=== PATIENT | male | born 1960 | race Caucasian/White ===

== ENCOUNTER 2023-04-27 07:54 | Outpatient (OUT) | payer BC, SELFPAY ==
[2023-04-27 08:09] LABS: Basophils Percent Auto 0.4 % (0.2-2.0); Eosinophils Absolute Auto 0.3 10^3/uL (0.0-0.7); Eosinophils Percent Auto 5.3 % (0.9-7.0); Hemoglobin 14.4 g/dL (14.0-18.0); Immature Granulocytes Abs Auto 0.02 10^3/uL (0.00-0.03); Immature Granulocytes Pct Auto 0.4 % (0.0-0.5); Lymphocytes Absolute Auto 1.3 10^3/uL (1.2-3.8); Lymphocytes Percent Auto 26.6 % (20.5-60.0); Mean Corpuscular HGB Conc 35.1 g/dL (29.9-35.2); Mean Corpuscular Hemoglobin 30.4 pg (25.9-34.0); Mean Corpuscular Volume 86.5 fL (80.0-94.0); Mean Platelet Volume 9.1 fL (9.5-13.5); Monocytes Absolute Auto 0.5 10^3/uL (0.3-0.8); Monocytes Percent Auto 10.6 % (1.7-12.0); Neutrophils Absolute Auto 2.8 10^3/uL (1.4-6.5); Neutrophils Percent Auto 56.7 % (43.0-75.0); Platelet Count 134 10^3/uL (150-450); Red Blood Count 4.74 10^6/uL (4.70-6.10); Red Cell Distribution Width 12.5 % (11.0-15.0); White Blood Count 4.9 10^3/uL (4.0-11.0)
[2023-04-27 09:13] LABS: Alanine Aminotransferase 39 U/L (16-63); Albumin Globulin Ratio 1.2; Albumin Level 4.1 g/dL (3.4-5.0); Alkaline Phosphatase 85 U/L (46-116); Anion Gap 9.9; Aspartate Amino Transferase 20 U/L (15-37); BUN Creatinine Ratio 15.6; Bilirubin Total 0.6 mg/dL (0.2-1.0); Calcium 9.2 mg/dL (8.5-10.1); Carbon Dioxide 32.1 mmol/L (21.0-32.0); Chloride 102 mmol/L (98-107); Chol HDL Ratio 4.9; Cholesterol 181 mg/dL (<=200); Estimated GFR (African America >60 (>=60); Estimated GFR (Non-African Ame >60 (>=60); Globulin 3.5 g/dL; Glucose 140 mg/dL (74-106); HDL Cholesterol 37 mg/dL (40-60); Sodium 140 mmol/L (136-145); Total Protein 7.6 g/dL (6.4-8.2); Triglycerides 181 mg/dL (<=150); Uric Acid 5.7 mg/dL (3.5-7.2); VLDL CHOLESTEROL 36.2 mg/dL
[2023-04-27 09:54] LABS: Estimated Average Glucose 146 mg/dL; Glycohemoglobin A1C 6.7 % (4.5-6.2)
[2023-04-27 10:50] LABS: Prostate Specific Antigen Scrn 0.45 ng/mL (<=4.00)
== END 2023-04-27 07:55 | disposition home or self-care (01) ==
LOC: LAB 07:54
PROVIDERS: PCP Family Medicine; Visit Provider Family Medicine
DX: Z00.00 Encounter for general adult medical examination without abnormal findings (principal); M1A.0721 Idiopathic chronic gout, left ankle and foot, with tophus (tophi); I10 Essential (primary) hypertension; Z12.5 Encounter for screening for malignant neoplasm of prostate; E11.65 Type 2 diabetes mellitus with hyperglycemia
CPT/HCPCS: 36415; 80053; 80061; 83036; 84550; 85025; G0103

== ENCOUNTER 2024-03-14 12:01 | Outpatient (OUT) | payer MEDICARE, SELFPAY ==
--- NOTE | 2024-03-14 12:09 | XR_ITS ---
The [address] [address] Patient Name: ENIO SILVA MRN: [id number] date: 1960 Sex: M Assigned Patient Location: [facility] Current Patient Location: Accession/Order Number: [id number] Exam Date: 03/14/2024 12:11 Report Date: 03/15/2024 04:41 At the request of: CHRISTOPHER SINGH Procedure: XR lumbar spine 2-3V EXAMINATION: XR lumbar spine 2-3V HISTORY: Right Side Sciatica M54.31 COMPARISON: No relevant comparison available. FINDINGS: BONES: Mild degenerative facet arthropathy of lower lumbar spine. No fracture, spondylolisthesis, bone lesion. DISC SPACES: Small posterior endplate osteophytes at L4-L5 suspected to cause mild narrowing of the foramen. Marked disc space narrowing L5-S1 with narrowing of the neural foramen. PARASPINOUS: Negative. No paraspinous abnormality is seen. OTHER: Negative. XR/XR lumbar spine 2-3V IMPRESSION: 1. Degenerative disc disease and facet arthropathy of lower lumbar spine. Electronically authenticated by: ANN MARIE TSANG Date: 03/15/2024 04:41
== END 2024-03-14 12:02 | disposition home or self-care (01) ==
LOC: LAB 12:04 → RAD 12:07
PROVIDERS: Visit Provider Family Medicine
DX: M54.31 Sciatica, right side (principal); M51.36 Other intervertebral disc degeneration, lumbar region
CPT/HCPCS: 72100

== ENCOUNTER 2024-03-20 12:42 | Outpatient (OUT) | payer MEDICARE, SELFPAY ==
--- NOTE | 2024-03-20 12:56 | XR_ITS ---
The [address] [address] Patient Name: ENIO SILVA MRN: [id number] date: 1960 Sex: M Assigned Patient Location: LAB Current Patient Location: LAB Accession/Order Number: [id number] Exam Date: 03/20/2024 13:00 Report Date: 03/20/2024 13:16 At the request of: CHRISTOPHER SINGH Procedure: XR foreign body eye IAN EXAMINATION: XR foreign body eye IAN HISTORY: Foreign Body Screen COMPARISON: No relevant comparison available. FINDINGS: ORBITS: Negative for a metallic foreign body. OTHER: Dental hardware. XR/XR foreign body eye IAN IMPRESSION: No metallic foreign bodies in the orbits Electronically authenticated by: LUIS ARMANDO BOSTON Date: 03/20/2024 13:16
--- NOTE | 2024-03-20 12:57 | MR_ITS ---
The [address] [address] Patient Name: ENIO SILVA MRN: [id number] date: 1960 Sex: M Assigned Patient Location: LAB Current Patient Location: LAB Accession/Order Number: [id number] Exam Date: 03/20/2024 13:25 Report Date: 03/20/2024 14:34 At the request of: CHRISTOPHER SINGH Procedure: MR lumbar spine wo con EXAMINATION: MR lumbar spine wo con HISTORY: Sciatica Of Right Side M54.31 COMPARISON: No relevant comparison available. TECHNIQUE: A variety of imaging planes and parameters were utilized for visualization of suspected pathology. FINDINGS: For the purposes of numbering, sagittal T2 image # 8 extends from the T11 vertebral body superiorly to the S2-S3 level inferiorly. PARASPINAL AREA: Normal with no visible mass. BONES: Normal alignment with no acute fracture or spondylolisthesis. No significant bone edema. CORD/CAUDA EQUINA: Normal caliber, contour, and signal intensity. DISC LEVELS: 12-L1: No significant disc/facet abnormality, spinal stenosis, or foraminal stenosis. L1-L2: No significant disc/facet abnormality, spinal stenosis, or foraminal stenosis. L2-L3: Disc desiccation. Left foraminal disc protrusion. No central canal or foraminal stenosis L3-L4: No disc space narrowing and disc desiccation. Mild posterior disc/osteophyte complex most significant along the left neural foramen. Mild ligamentum flavum hypertrophy and facet osteoarthropathy. No central canal stenosis or right foraminal stenosis. Mild left foraminal stenosis L4-L5: Disc desiccation and disc space narrowing. Mild diffuse disc/osteophyte complex. Left foraminal disc herniation of the extrusion type best seen on sagittal image #4 causing moderate foraminal stenosis. No right foraminal stenosis L5-S1: Moderate disc space narrowing and disc desiccation. Right paracentral/preforaminal disc herniation of the extrusion type best seen on axial image #12. This effaces the adjacent nerves. No foraminal stenosis MR/MR lumbar spine wo con IMPRESSION: Discogenic changes detailed above with a right paracentral/preforaminal disc herniation at L5-S1 possibly resulting in the patient's symptoms Electronically authenticated by: LUIS ARMANDO BOSTON Date: 03/20/2024 14:34
[2024-03-20 13:00] LABS: Estimated GFR (African America >60 (>=60); Estimated GFR (Non-African Ame >60 (>=60)
== END 2024-03-20 12:43 | disposition home or self-care (01) ==
LOC: LAB 12:42
PROVIDERS: PCP Family Medicine; Visit Provider Family Medicine
DX: M54.31 Sciatica, right side (principal); M51.27 Other intervertebral disc displacement, lumbosacral region
CPT/HCPCS: 36415; 70030; 72148; 82565

== ENCOUNTER 2024-10-01 09:52 | Outpatient (OUT) | payer MEDICARE, SELFPAY ==
--- OUTSIDE RECORDS SUMMARY | 2024-10-01 09:58 | XMS_ITS | CCD ---
Author Organization [facility] Care Team Providers Care Fireboat Operator Name Role Phone REQUEST, DR NONE LISTED Consulting Unavaila ble MISC, DR ELLIS Admitting Unavailable MISC, DR ELLIS Attending Unavailable MANCERA, DR RAQUEL Mir Primary Care Unavailable REQUEST, NONE LISTED Attending Unavaila ble BEAN, DR RAQUEL Mir Primary Care Unavailable REQUEST, NONE LISTED Admitting Unavaila ble REQUEST, NONE LISTED Consulting Unavaila ble [facility]. Attending Unavailable Milady Mansfield Unavailable Misha Jacobs Unavailable MD Misha Jacobs Attending Provider MD Milady Mansfield Primary Care Provider [phone] Maria Luisa Gudino Unavailable MD Milady Mansfield Primary Care Provider MD Wyatt Mansfield Attending Provider Misha Jacobs Admitting UnavailMisha Guallpa Attending UnavailMilady Portillo Primary Care Unavailable Wyatt Mansfield Admitting Unavailable Wyatt Mansfield Attending Unavailable Milady Mansfield Primary Care Unavailable Wyatt Mansfield Admitting Unavailable Wyatt Mansfield Attending Unavailable Milady Mansfield Primary Care Unavailable Allergies Allergy Classification Reported Allergen(s) Allergy Type Date of Onset Reaction(s) Facility (1 source) Sulfamethoxazole / Trimethoprim Drug Allergy 6 [facility] Rep[facility] Medications Current Medications Medication Drug Class(es) Dates Sig (Normalized) Sig (Original) azithromycin 250 mg oral tablet (2 sources) Macrolide Antimicrobial Start: 3 Azithromycin 250 MG 2 tablet on the first day, then 1 tablet daily for 4 days Orally Once a day for 5 day(s) Jul, Active bisoprolol fumarate 5 mg / hydroCHLOROthiazide 6.25 mg oral tablet (9 sources) Thiazide Diuretic, beta-Adrenergic Edy Start: 3 take 1 tablet by mouth once daily Bisoprolol-Hydrochl orothiazide (Ziac) 5-6.25 mg Tablet Active 1 TAB PO Daily August 01, 2023 1:00am cephalexin 500 mg oral capsule (1 source) Cephalosporin Antibacterial Start: 4 take 500 mg by mouth three times daily Cephalexin Active 500 MG PO Three times daily May 06, 2024 12:00am cyclobenzaprine hydrochloride 10 mg oral tablet (1 source) Muscle Relaxant Start: 4 take 10 mg by mouth three times daily Cyclobenzaprine Active 10 MG PO Three times daily 26 06May 06, 2024 10:32am gabapentin 300 mg oral capsule (2 sources) Anti-epileptic Agent Start: 4 take 600 mg by mouth twice daily Gabapentin Active 600 MG PO Twice daily 120 April 17, 2024 12:00am meloxicam 15 mg oral tablet (2 sources) Nonsteroidal Anti-inflammatory Drug Start: 4 take 15 mg by mouth once daily Meloxicam Active 15 MG PO Daily March 25, 2024 12:00am 24 hr metFORMIN hydrochloride 500 mg extended release oral tablet (10 sources) Biguanide Start: 3 End: 4 take 500 mg by mouth once daily Metformin Active 500 MG PO Daily March 04, 2024 10:19am oxyCODONE hydrochloride 5 mg oral tablet (1 source) Opioid Agonist Start: 4 take 5-10 mg by mouth every six hours Oxycodone Active 5 - 10 MG PO Q6H 40 May 06, 2024 Prednisone (1 source) Start: 4 Prednisone Active 1 dose pk PO per package directions May 06, 2024 12:00am take 4 tabs for 3 days then take 3 tabs for 3 days then take 2 tabs for 3 days then take 1 tab for 3 days Completed/Discontinued Medications Medication Drug Class(es) Dates Sig (Normalized) Sig (Original) allopurinol 100 mg oral tablet (8 sources) Xanthine Oxidase Inhibitor Start: 10-19-2023 End: 10-26-2023 take 1 tablet by mouth once daily Allopurinol Discontinued 100 MG PO Daily October 19, 2023 1:00am October 26, 2023 9:40am FreeTextSig: TAKE 1 TABLET BY MOUTH EVERY DAY; Note: Source Status: Taking; Refills: 0; Qty: 90 Tablet; Provider: Donal Henning ( ) take 1 tablet by mouth once damion y Allopurinol 100 MG TAKE 1 TABLET BY MOUTH EVERY DAY for 90 Active aspirin 81 mg delayed release oral tablet (8 sources) Platelet Aggregation Inhibitor, Nonsteroidal Anti-inflammatory Drug Start: 10-19-2023 End: 10-26-2023 Aspirin (Adult Low Dose Aspirin) 81 mg tablet,delayed release (DR/EC) Discontinued 81 MG PO Daily October 19, 2023 1:00am October 26, 2023 9:40am take 1 tablet by mars th every twenty-four hours Aspirin 81 81 MG 1 tablet once a day Active Aspirin 81 81 MG 1 tablet once a day Active Problems Active Problems Problem Classification Problem Date Documented Date Episodic/Chronic Diabetes mellitus with complications (10 sources) Type 2 diabetes mellitus; Translations: [Type 2 diabetes mellitus with hyperglycemia] Chronic Essential hypertension (9 sources) Essential hypertension; Translations: [Essential (primary) hypertension] Chronic Gout and other crystal arthropathies (7 sources) Chronic tophaceous gout of left foot; Translations: [Idiopathic chronic gout, left ankle and foot, with tophus (tophi)] Chronic Other and unspecified benign neoplasm (3 sources) History of polyp of colon; Translations: [Personal history of colonic polyps] 08-01-2023 Episodic Other screening for suspected conditions (not mental disorders or infectious disease) (1 source) Encounter for screening for malignant neoplasm of prostate Episodic Other upper respiratory infections (1 source) Acute pansinusitis, unspecified Episodic Spondylosis; intervertebral disc disorders; other back problems (7 sources) Disorder of lumbosacral intervertebral disc; Translations: [Other intervertebral disc displacement, lumbosacral region] Onset: 05-06-2024 04-16-2024 Chronic Spondylosis; intervertebral disc disorders; other back problems (9 sources) Disorder of right sciatic nerve; Translations: [Sciatica, right side] Onset: 05-06-2024 10-26-2023 Episodic Unclassified (1 source) Encounter for screening for malignant neoplasm of colon; Translations: [Encounter for screening for malignant neoplasm of colon] Onset: 08-01-2023 Past or Other Problems Problem Classification Problem Date Documented Da te Episodic/Chronic Other and unspecified benign neoplasm (2 sources) Personal history of colonic polyps; Translations: [Personal history of colonic polyps] Onset: 08-01-2023 08-01-2023 Episodic Results Test Name Value Interpretation Reference Range Facility Capillary blood glucose joaquín urement by glucometer (mass/volume)Ordered By: Wyatt Mansfield on 05-06-2024 Glucose [Mass/Vol] 137 mg/dL Normal [facility] Comment on above: Random Glucose Refer ence Range is dependent on time and content of last meal. Glucose of more than 200 mg/dL in a nonstressed, ambulatory subject supports the diagnosis of Diabetes Mellitus. Result Comment: [place] om Glucose Reference Range is dependent on time and content of last meal. Glucose of more than 200 mg/dL in a nonstressed, ambulatory subject supports the diagnosis of Diabetes Mellitus. Performed By: #### G LULS #### Point of Care testing , Glucose Poct Glucometerson 0 05-06-2024 Commemt1 Glu2: Cleaned Meter Normal [facility] Comment on above: Result Comment: PERF ORMED BY: [address] [address] PATHOLOGIST FOLLOW UP MANAGER STUART RODRIGUEZ M.D. Performed By: #### G LULS #### Point of Care testing , Commemt1 Glu2: Cleaned Meter Normal [facility] Comment on above: Result Comment: PERF ORMED BY: [facility] [address] [place] [id number] PATHOLOGIST FOLLOW UP MANAGER STUART RODRIGUEZ M.D. Performed By: #### G LULS #### Point of Care testing , Glucose [Mass/Vol] 147 mg/dL Normal [facility] Comment on above: Result Comment: [place] om Glucose Reference Range is dependent on time and content of last meal. Glucose of more than 200 mg/dL in a nonstressed, ambulatory subject supports the diagnosis of Diabetes Mellitus. Performed By: #### G LULS #### Point of Care testing , No Panel InformationOrdered By: Wyatt Mansfield on 05-06-2024 Bedside Glucose Comment Glu2: cleaned meter [facility] XR lumbar spine 1Von 024 XR lumbar spine 1V [facility] [place] [address] [place] [address] XRay Report Signed Patient: Fernando Vick MR#: [id number] : 1960 Acct:[id number] Age/Sex: 64 / M ADM Date: 05/06/24 Loc: [place] Room: Type: [facility] Attending Dr: Wyatt Mansfield MD Copies to: Wyatt Mansfield MD Ordering Provider: Wyatt Mansfield MD Date of Service: 05/06/24 XR/XR lumbar spine 1V: / Fluoroscopic assessment for localization for L5-S1 lumbar discectomy HISTORY: L5-S1 lumbar discectomy One image was obtained. Cumulative Air Kerma in mGy: 1.3 mGy Lateral lumbar localization performed XR/XR lumbar spine 1V IMPRESSION: Fluoroscopic lateral lumbar localization. Impression dictated by: Camacho Em M.D.05/06/2024 4:22 PM Dictation Location: [place] [address] Transcribed By: [facility] 05/06/24 162 Dictated By: Camacho Em DO 05/06/24 162 Signed By: 05/06/24 162 Normal [facility] Automated basophil %Ordered By: Wyatt Mansfield on 04-22-2024 Basophils/100 WBC (Bld) 0.4 % Normal . [facility] Comment on above: Performed By: #### C BC #### [facility] [address] [place] [address] Automated basophil countOrde red By: Wyatt Mansfield on 04-22-2024 Basophils (Bld) [#/Vol] 0.0 10*3/uL Normal 0.0-0.2 [facility] Comment on above: Result Comment: PERF ORMED BY: [place] [address] PATHOLOGIST FOLLOW UP MANAGER STUART RODRIGUEZ M.D. Performed By: #### C BC #### [address] Automated blood monocyte cou ntOrdered By: Wyatt Mansfield on 04-22-2024 Monocytes (Bld) [#/Vol] 0.5 10*3/uL Normal 0.0-0.8 [facility] Comment on above: Performed By: #### C BC #### [address] Automated eosinophil %Ordere d By: Wyatt Mansfield on 04-22-2024 Eosinophils/100 WBC (Bld) 3.6 % Normal . [facility] Comment on above: Performed By: #### C BC #### [address] Automated eosinophil countOr dered By: Wyatt Mansfield on 04-22-2024 Eosinophils (Bld) [#/Vol] 0.2 10*3/uL Normal 0.0-0.45 [facility] Comment on above: Performed By: #### C BC #### [address] Automated monocyte %Ordered By: Wyatt Mansfield on 04-22-2024 Monocytes/100 WBC (Bld) 9.5 % Normal . [facility] Comment on above: Performed By: #### C BC #### [address] Automated neutrophil %Ordere d By: Wyatt Mansfield on 04-22-2024 Neutrophils/100 WBC (Bld) 60.3 % Normal . [facility] Comment on above: Performed By: #### C BC #### [address] Basic Metabolic Panelon 03-29 GFR/1.73 sq M.predicted MDRD (S/P/Bld) [Vol rate/Area] mL/min/{1.73_m2} Normal [facility] Comment on above: Performed By: #### B MP #### [address] Calcium [Mass/volume] in Ser um or PlasmaOrdered By: Wyatt Mansfield on 04-22-2024 Calcium [Mass/Vol] 9.6 mg/dL Normal 8.6-10.3 [facility] Comment on above: Result Comment: PERF ORMED BY: [place] [address] PATHOLOGIST FOLLOW UP MANAGER STUART RODRIGUEZ M.D. Performed By: #### B MP #### [address] Carbon dioxide, total [Moles /volume] in Serum or PlasmaOrdered By: Wyatt Mansfield on 04-22-2024 CO2 [Moles/Vol] 29.0 mmol/L Normal 21.0-31.0 [facility] Comment on above: Performed By: #### B MP #### [address] Chloride [Moles/volume] in S vinny or PlasmaOrdered By: Wyatt Mansfield on 04-22-2024 Chloride [Moles/Vol] 103 mmol/L Normal 98-107 [facility] Comment on above: Performed By: #### B MP #### [address] Complete Blood Count Auto Di ffon 04-22-2024 Mean Corpuscular HGB Conc 35.1 g/dL Normal 32.5-35.6 [facility] Comment on above: Performed By: #### C BC #### [address] NRBC% 0.2 /100{WBC} Normal 0-0.[address] [facility] Comment on above: Performed By: #### C BC #### [address] Creatinine [Mass/volume] in Serum or PlasmaOrdered By: Wyatt Mansfield on 04-22-2024 Creatinine [Mass/Vol] 0.99 mg/dL Normal 0.70-1.30 [facility] Comment on above: Performed By: #### B MP #### [address] ECG 12 lead ECGon 08-26-2024 ECG 12 lead ECG [facility] [place] [address] [place] [address] Electrocardiograph Report Signed Patient: Fernando Vick MR#: [id number] : 1960 Acct:[id number] Age/Sex: 64 / M ADM Date: 04/22/24 Loc: [place] Room: Type: [facility] Attending Dr: Wyatt Mansfield MD Ordering Provider: Wyatt Mansfield MD Date of Service: 04/22/24 ECG/ECG 12 lead ECG: pre-op Copies to: Test Reason : Blood Pressure : */* mmHG Vent. Rate : 56 BPM Atrial Rate : 56 BPM P-R Int : 136 ms QRS Dur : 78 ms QT Int : 422 ms P-R-T Axes : 49 50 21 degrees QTcB Int : 407 ms Sinus bradycardia Otherwise normal ECG No previous ECGs available Confirmed by Issa Ozuna ([id number]) on 04/23/2024 10:30:06 PM Referred By: Electronically Signed By: Issa Ozuna Transcribed By: MUS Signed By Issa Ozuna MD 04/23/242229 Normal [facility] Erythrocyte distribution wid th [Ratio] by Automated countOrdered By: Wyatt Mansfield on 04-22-2024 Erythrocyte distribution width (RBC) [Ratio] 13.1 % Normal 12.0-14.8 [facility] Comment on above: Performed By: #### C BC #### [facility] [address] [place] [address] [place] Erythrocytes [#/volume] in B lood by Automated countOrdered By: Wyatt Mansfield on 04-22-2024 RBC (Bld) [#/Vol] 4.72 10*6/uL Normal 3.90-5.60 [facility] Comment on above: Performed By: #### C BC #### [facility] [address] [place] [address] [place] Glucose [Mass/volume] in Ser um or PlasmaOrdered By: Wyatt Mansfield on 04-22-2024 Glucose [Mass/Vol] 185 mg/dL High 70-100 [facility] Comment on above: ADA recommended refe rence rangeRandom Glucose Reference Range is dependent on time and content of last meal. Glucose of more than 200 mg/dL in a nonstressed, ambulatory subject supports the diagnosis of Diabetes Mellitus. Result Comment: [place] Glucose Reference Range is dependent on time and content of last meal. Glucose of more than 200 mg/dL in a nonstressed, ambulatory subject supports the diagnosis of Diabetes Mellitus. ADA recommended reference range Performed By: #### B MP #### [address] Hematocrit [Volume Fraction] of Blood by Automated countOrdered By: Wyatt Mansfield on 04-22-2024 Hematocrit (Bld) [Volume fraction] 40.4 % Normal 38.8-50.0 [facility] Comment on above: Performed By: #### C BC #### [address] Hemoglobin [Mass/volume] in BloodOrdered By: Wyatt Mansfield on 04-22-2024 Hemoglobin (Bld) [Mass/Vol] 14.2 g/dL Normal 13.0-17.0 [facility] Comment on above: Performed By: #### C BC #### [address] Leukocytes [#/volume] correc bobby for nucleated erythrocytes in Blood by Automated counOrdered By: Wyatt Mansfield on 04-22-2024 WBC corrected for nucl RBC Auto (Bld) [#/Vol] 5.5 10*3/uL 4.1-10.5 [facility] Leukocytes [#/volume] in Blo od by Automated countOrdered By: Wyatt Mansfield on 04-22-2024 WBC (Bld) [#/Vol] 5.5 10*3/uL Normal 4.1-10.5 [facility] Comment on above: Performed By: #### C BC #### [place] [address] [place] Lymphocytes [#/volume] in Bl ood by Automated countOrdered By: Wyatt Mansfield on 04-22-2024 Lymphocytes (Bld) [#/Vol] 1.4 10*3/uL Normal 1.00-4.8 [facility] Comment on above: Performed By: #### C BC #### [address] Lymphocytes/100 leukocytes i n Blood by Automated countOrdered By: Wyatt Mansfield on 04-22-2024 Lymphocytes/100 WBC (Bld) 26.2 % Normal . [facility] Comment on above: Performed By: #### C BC #### [address] MCH [Entitic mass] by Automa bobby countOrdered By: Wyatt Mansfield on 04-22-2024 MCH (RBC) [Entitic mass] 30.0 pg Normal 27.5-35.2 [facility] Comment on above: Performed By: #### C BC #### [address] MCHC Auto (RBC) [Mass/Vol]Or dered By: Wytat Mansfield on 04-22-2024 MCHC (RBC) [Mass/Vol] 35.1 g/dL 32.5-35.6 [facility] MCV [Entitic volume] by Auto mated countOrdered By: Wyatt Mansfield on 04-22-2024 MCV (RBC) [Entitic vol] 85.5 fL Normal 83.5-101 [facility] Comment on above: Performed By: #### C BC #### [address] Neutrophils [#/volume] in Bl ood by Automated countOrdered By: Wyatt Mansfield on 04-22-2024 Neutrophils (Bld) [#/Vol] 3.3 10*3/uL Normal 1.8-7.7 [facility] Comment on above: Performed By: #### C BC #### [address] No Panel InformationOrdered By: Wyatt Mansfield on 04-22-2024 Estimated GFR (CKD-EPI) > 60.0 mL/Min [facility] Creatinine Clearance (Chem N/A [facility] Nucleated erythrocytes [Pres ence] in Blood by Automated countOrdered By: Wyatt Mansfield on 04-22-2024 Nucleated RBC Auto Ql (Bld) 0.2 /100{WBC} 0-0.5 [facility] Platelet mean volume [Entiti c volume] in Blood by Automated countOrdered By: Wyatt Mansfield on 04-22-2024 Platelet mean volume (Bld) [Entitic vol] 7.7 fL Normal 6.6-10.1 [facility] Comment on above: Performed By: #### C BC #### [place] [address] [place] Platelets [#/volume] in Bloo d by Automated countOrdered By: Wyatt Mansfield on 04-22-2024 Platelets (Bld) [#/Vol] 159 10*3/uL Normal 150-450 [facility] Comment on above: Performed By: #### C BC #### [address] Potassium [Moles/volume] in Serum or PlasmaOrdered By: Wyatt Mansfield on 04-22-2024 Potassium [Moles/Vol] 4.0 mmol/L Normal 3.5-5.1 [facility] Comment on above: Performed By: #### B MP #### [address] Serum or plasma anion gap de terminationOrdered By: Wyatt Mansfield on 04-22-2024 Anion gap [Moles/Vol] 11.0 mmol/L Normal 6.0-15.0 [facility] Comment on above: Performed By: #### B MP #### [place] [address] [place] Sodium [Moles/volume] in Ser um or PlasmaOrdered By: Wyatt Mansfield on 04-22-2024 Sodium [Moles/Vol] 139 mmol/L Normal 136-145 [facility] Comment on above: Performed By: #### B MP #### [place] [address] [place] Urea nitrogen [Mass/volume] in Serum or PlasmaOrdered By: Wyatt Mansfield on 04-22-2024 Urea nitrogen [Mass/Vol] 22 mg/dL Normal 7-25 [facility] Comment on above: Performed By: #### B MP #### [facility] [address] [place] [id number] [facility] Estimated glomerular filtrat ion rate (GFR) non- Americanon 03-20-2024 GFR/1.73 sq M.predicted among non-blacks MDRD (S/P/Bld) [Vol rate/Area] mL/min/{1.73_m2} >=60 [facility] - Chemistry and C hemistry - challengeon 03-20-2024 Creatinine [Mass/Vol] 0.92 mg/dL 0.70-1.30 [facility] GFR/1.73 sq M.predicted MDRD (S/P/Bld) [Vol rate/Area] mL/min/{1.73_m2} >=60 [facility] Capillary blood glucose joaquín urement by glucometer (mass/volume)Ordered By: Misha Jacobs on 08-01-2023 Glucose [Mass/Vol] 141 mg/dL Normal [facility] Comment on above: Random Glucose Refer ence Range is dependent on time and content of last meal. Glucose of more than 200 mg/dL in a nonstressed, ambulatory subject supports the diagnosis of Diabetes Mellitus. Result Comment: [place] Glucose Reference Range is dependent on time and content of last meal. Glucose of more than 200 mg/dL in a nonstressed, ambulatory subject supports the diagnosis of Diabetes Mellitus. Performed By: #### G MANDEEP #### Point of Care testing , Glucose Poct Glucometerson 1 10-02-2022 Commemt1 Glu2: Cleaned Meter Normal [facility] Comment on above: Result Comment: PERF ORMED BY: [facility] [address] [place] [address] PATHOLOGIST FOLLOW UP MANAGER STUART RODRIGUEZ M.D. Performed By: #### G MANDEEP #### Point of Care testing , Frank 08-01-2023 L -- Specimen: [id number] Received: 08/01/23 Status: ELDER Jaun Num: [id number] Spec Type: Surgical Subm Dr: Misha Jacobs MD Tissues: A Colon Biopsy (RECTAL POLYP) Procedures: HE/2, Gross/Micro L4 -- Age/ Patient Sex Location Account Attending Physician -- Fernando Vick/M [id number] Misha Jacobs MD -- SPEC NUM: [id number] RECD: 08/01/23 STATUS: ELDER JAUN NUM: [id number] ALBERTO: 08/01/23- DR: Misha Jacobs MD ENTERED: 08/01/23 EZRA QUEEN: SPEC TYPE: Surgical DEPT: S ORDERED: HE/2, Gross/Micro L4 ORDERED: HE/2, Gross/Micro L4 Pathological Diagnosis Rectal polyp biopsy: -Tubular adenoma in all fragments without high-grade features Clinical Information History of polyps Gross Description Received in formalin labeled with the patient's name, date of and rectal polyp are three delatorre tissues ranging from 0.2 cm to 0.5 x 0.3 x 0.2 cm. Entirely submitted in one cassette labeled A1. Microscopic Description Two H E slides reviewed. The microscopic examination confirms the diagnosis. CPT Codes 81894 -- -- Specimen: [id number] Received: 08/01/23 Status: ELDER Jaun Num: [id number] Spec Type: Surgical Subm Dr: Misha Jacobs MD Tissues: A Colon Biopsy (RECTAL POLYP) Procedures: ARNULFO Gross/Micro L4 -- Patient: Brennan Vickg [id number] (Continued) -- Signed (signatu re on file) Bethel Hernandez MD 08/02/232028 Normal [facility] No Panel InformationOrdered By: Misha Jacobs on 08-01-2023 Bedside Glucose Comment Glu2: cleaned meter [facility] GLYCOHEMOGLOBIN A1Con 2022 ADA RECOMMENDATION SEE BELOW Normal [facility] Comment on above: Result Comment: ADA RECOMMENDED LIMIT 4.0 - 6.0 ADA THERAPEUTIC TARGET < 7.0 ACTION SUGGESTED > 7.0 Performed By: #### D ATA1C #### [facility] [address] [place] [address] Dr. Maren Hernandez Glucose [Mass/Vol] 140 mg/dL Normal [facility] Comment on above: Performed By: #### D ATA1C #### [facility] [address] [place] [address] [address] Maren Hernandez HbA1c (Bld) [Mass fraction] 6.5 % Critically high 4.5-6.2 [facility] Comment on above: Performed By: #### D ATA1C #### [facility] [address] [place] [address] [address] Maren Hernandez CBC AUTO DIFFon 04-14-2022 BASO # 0.0 103/ul Normal 0.0-0.1 [facility] Comment on above: Performed By: #### D ATCBC #### [facility] [address] [place] [address] [address] Maren Hernandez Basophils/100 WBC (Bld) 0.5 % Normal 0.2-2.[address] [facility] Comment on above: Performed By: #### D ATCBC #### [facility] [address] [place] [address] [address] Maren Hernandez EO # 0.2 103/ul Normal 0.0-0.7 [facility] Comment on above: Performed By: #### D ATCBC #### [facility] [address] [place] [address] Dr. Maren Hernandez Eosinophils/100 WBC (Bld) 3.6 % Normal 0.9-7.0 [facility] Comment on above: Performed By: #### D ATCBC #### [facility] [address] [place] [address] Dr. Maren Hernandez Erythrocyte distribution width (RBC) [Ratio] 12.5 % Normal 11.0-15.0 [facility] Comment on above: Performed By: #### D ATCBC #### [facility] [address] [place] [address] Dr. Maren Hernandez Hematocrit (Bld) [Volume fraction] 43.3 % Normal 42.0-54.0 [facility] Comment on above: Performed By: #### D ATCBC #### [facility] [address] [place] [address] Dr. Maren Hernandez Hemoglobin (Bld) [Mass/Vol] 14.9 g/dL Normal 14.0-18.0 [facility] Comment on above: Performed By: #### D ATCBC #### [facility] [address] [place] [address] Dr. Maren Hernandez IG # 0.02 10e3/ul Normal 0.00-0.03 [facility] Comment on above: Performed By: #### D ATCBC #### [facility] [address] [place] [address] Dr. Maren Hernandez IG % 0.4 % Normal 0.0-0.5 [facility] Comment on above: Performed By: #### D ATCBC #### [facility] [address] [place] [address] Dr. Maren Hernandez LYMPH # 1.3 103/ul Normal 1.2-3.8 [facility] Comment on above: Performed By: #### D ATCBC #### [facility] [address] [place] [address] Dr. Maren Hernandez Lymphocytes/100 WBC (Bld) 23.6 % Normal 20.5-60.0 [facility] Comment on above: Performed By: #### D ATCBC #### [facility] [address] [place] [address] [address] Maren Hernandez MCH (RBC) [Entitic mass] 30.0 pg Normal 25.9-34.0 [facility] Comment on above: Performed By: #### D ATCBC #### [facility] [address] [place] [address] Dr. Maren Hernandez MCHC (RBC) [Mass/Vol] 34.4 g/dL Normal 29.9-35.2 [facility] Comment on above: Performed By: #### D ATCBC #### [facility] [address] [place] [address] Dr. Maren Hernandez MCV (RBC) [Entitic vol] 87.3 fL Normal 80.0-94.[address] [facility] Comment on above: Performed By: #### D ATCBC #### [facility] [address] [place] [address] Dr. Maren Hernandez MONO # 0.6 103/ul Normal 0.3-0.8 [facility] Comment on above: Performed By: #### D ATCBC #### [facility] [address] [place] [address] Dr. Maren Hernandez Monocytes/100 WBC (Bld) 10.0 % Normal 1.7-12.[address] [facility] Comment on above: Performed By: #### D ATCBC #### [facility] [address] [place] [address] Dr. Maren Hernandez NEUT # 3.4 103/ul Normal 1.4-6.5 [facility] Comment on above: Performed By: #### D ATCBC #### [facility] [address] [place] [address] Dr. Maren Hernandez Neutrophils/100 WBC (Bld) 61.9 % Normal 43.0-75.0 [facility] Comment on above: Performed By: #### D ATCBC #### [facility] [address] [place] [address] Dr. Maren Hernandez Platelet mean volume (Bld) [Entitic vol] 9.2 fL Critically low 9.5-13.5 [facility] Comment on above: Performed By: #### D ATCBC #### [facility] [address] [address] [address] Maren Hernandez PLT 152 103/ul Normal 150-450 [facility] Comment on above: Performed By: #### D ATCBC #### [facility] [address] [address] [address] Maren Hernandez RBC 4.96 106/ul Normal 4.70-6.10 [facility] Comment on above: Performed By: #### D ATCBC #### [facility] [address] [address] [address] Maren Hernandez WBC 5.5 103/ul Normal 4.0-11.0 [facility] Comment on above: Performed By: #### D ATCBC #### [facility] [address] [place] [address] Dr. Maren Hernandez LOIS- BMP WITH LIPIDon 2021 Anion gap [Moles/Vol] 10.2 mmol/L Normal [facility] Comment on above: Performed By: #### D ATPSA, DATBMP #### [facility] [address] [place] [address] Dr. Maren Hernandez Calcium [Mass/Vol] 9.0 mg/dL Normal 8.5-10.1 [facility] Comment on above: Performed By: #### D ATPSA, DATBMP #### [facility] [address] [place] [address] Dr. Maren Hernandez Chloride [Moles/Vol] 101 mmol/L Normal 98-107 [facility] Comment on above: Performed By: #### D ATPSA, DATBMP #### [facility] [address] [place] [address] Dr. Maren Hernandez Cholesterol [Mass/Vol] 179 mg/dL Normal <=200 [facility] Comment on above: Performed By: #### D ATPSA, DATBMP #### [facility] [address] [place] [address] Dr. Maren Hernandez Cholesterol in HDL [Mass/Vol] 37 mg/dL Critically low 40-60 [facility] Comment on above: Performed By: #### D ATPSA, DATBMP #### [facility] [address] [address] [address] Maren Hernandez Cholesterol in LDL [Mass/Vol] 107.2 mg/dL Normal [facility] Comment on above: Performed By: #### D ATPSA, DATBMP #### [facility] [address] [place] [address] Dr. Maren Hernandez CO2 [Moles/Vol] 30.8 mmol/L Normal 21.0-32.0 [facility] [place] Comment on above: Performed By: #### D ATPSA, DATBMP #### [facility] [address] [place] [address] Dr. Maren Hernandez Creatinine [Mass/Vol] 0.85 mg/dL Normal 0.70-1.30 [facility] Comment on above: Performed By: #### D ATPSA, DATBMP #### [facility] [address] [place] [address] Dr. Maren Hernandez EGFR-AF CYPRIOT >60 Normal >=60 [facility] [place] Comment on above: Performed By: #### D ATPSA, DATBMP #### [facility] [address] [place] [address] Dr. Maren Hernandez EGFR-NON AF CYPRIOT >60 Normal >=60 [facility] Comment on above: Performed By: #### D ATPSA, DATBMP #### [facility] [address] [place] [address] Dr. Maren Hernandez Glucose [Mass/Vol] 137 mg/dL Normal [facility] Comment on above: Performed By: #### D ATPSA, DATBMP #### [facility] [address] [place] [address] Dr. Maren Hernandez Performed By: #### D ATA1C #### [facility] [address] [place] [address] Dr. Maren Hernandez HDL NORMAL > or = 60 mg/dl - LOW CARDIOVASCULAR RISK <40 mg/dl - HIGH CARDIOVASCULAR RISK Normal [facility] Comment on above: Performed By: #### D ATPSA, DATBMP #### [facility] [address] [address] [address] Maren Hernandez LDL CALC NORMAL SEE BELOW Normal [facility] Comment on above: Result Comment: <100 mg/dl OPTIMAL 100 - 129 mg/dl NEAR OR ABOVE OPTIMAL 130 - 159 mg/dl BORDERLINE HIGH 160 - 189 mg/dl HIGH >190 mg/dl VERY HIGH Performed By: #### D ATPSA, DATBMP #### [facility] [address] [address] [address] Maren Hernandez Potassium [Moles/Vol] 4.0 mmol/L Normal 3.5-5.1 [facility] Comment on above: Performed By: #### D ATPSA, DATBMP #### [facility] [address] [address] [address] Maren Hernandez Sodium [Moles/Vol] 138 mmol/L Normal 136-145 [facility] Comment on above: Performed By: #### D ATPSA, DATBMP #### [facility] [address] [address] [address] Maren Hernandez Triglyceride [Mass/Vol] 174 mg/dL Critically high <=150 [facility] Comment on above: Performed By: #### D ATPSA, DATBMP #### [facility] [address] [address] [address] Maren Hernandez Urea nitrogen [Mass/Vol] 17.0 mg/dL Normal 7.0-18.0 [facility] Comment on above: Performed By: #### D ATPSA, DATBMP #### [facility] [address] [address] [address] Maren Hernandez Urea nitrogen/Creatinine [Mass ratio] 20.0 mg/mg Normal [facility] Comment on above: Performed By: #### D ATPSA, DATBMP #### [facility] [address] [address] [address] Maren Hernandez VLDL CALC 34.8 mg/dL Normal [facility] Comment on above: Performed By: #### D ATPSA, DATBMP #### [facility] [address] [place], [place] [address] Dr. Maren Hernandez GLYCOHEMOGLOBIN A1Con 2021 ADA RECOMMENDATION SEE BELOW Normal [facility] Comment on above: Result Comment: ADA RECOMMENDED LIMIT 4.0 - 6.0 ADA THERAPEUTIC TARGET < 7.0 ACTION SUGGESTED > 7.0 Performed By: #### D ATA1C #### [facility] [address] [address] [address] Maren Hernandez HbA1c (Bld) [Mass fraction] 6.4 % Critically high 4.5-6.2 [facility] Comment on above: Performed By: #### D ATA1C #### [facility] [address] [address] [address] Maren Hernandez Vital Signs Date Time Vital Sign Value Performing Clinician Facility 05-06-2024 12:27-0400 Diastolic blood pressure 78 mm[Hg] MD Milady Mansfield Work Phone: [facility] 05-06-2024 12:27-0400 Heart rate 69 /min MD Milady Mansfield Work Phone: [facility] 05-06-2024 12:27-0400 Respiratory rate 16 /min MD Milady Mansfield Work Phone: [facility] 05-06-2024 12:27-0400 SaO2% (BldA) [Mass fraction] 94 % MD Milady Mansfield Work Phone: [facility] 05-06-2024 12:27-0400 Systolic blood pressure 131 mm[Hg] MD Milady Mansfield Work Phone: [facility] 05-06-2024 10:40-0400 Body temperature 97.1 [degF] MD Milady Mansfield Work Phone: [facility] 05-06-2024 10:40-0400 Inhaled oxygen flow rate 8 L/min MD Milady Mansfield Work Phone: [facility] 05-06-2024 07:25-0400 Body height 180.34 cm MD Milady Mansfield Work Phone: [facility] 05-06-2024 07:25-0400 Body weight 91 kg MD Milady Mansfield Work Phone: [facility] 04-17-2024 08:33-0400 Body height 180.34 cm MD Milady Mansfield Work Phone: [facility] 04-17-2024 08:33-0400 Body mass index (BMI) [Ratio] 27.4 kg/m2 MD Milady Mansfield Work Phone: [facility] 04-17-2024 08:33-0400 Body weight 89.35 kg MD Milady Mansfield Work Phone: [facility] 04-17-2024 08:33-0400 Diastolic blood pressure 82 mm[Hg] MD Milady Mansfield Work Phone: [facility] 04-17-2024 08:33-0400 Heart rate 55 /min MD Milady Mansfield Work Phone: [facility] 04-17-2024 08:33-0400 Systolic blood pressure 148 mm[Hg] MD Milady Mansfield Work Phone: [facility] 04-16-2024 15:16-0400 Body height 180.34 cm MD Milady Mansfield Work Phone: [facility] 04-16-2024 15:16-0400 Body mass index (BMI) [Ratio] 27.5 kg/m2 MD Milady Mansfield Work Phone: [facility] 04-16-2024 15:16-0400 Body weight 89.41 kg MD Milady Mansfield Work Phone: [facility] 03-14-2024 11:26-0400 Body height 180.34 cm MD Milady Mansfield Work Phone: [facility] 03-14-2024 11:26-0400 Body mass index (BMI) [Ratio] 27.4 kg/m2 MD Milady Mansfield Work Phone: [facility] 03-14-2024 11:26-0400 Body weight 89.35 kg MD Milady Mansfield Work Phone: [facility] 03-14-2024 11:26-0400 Diastolic blood pressure 80 mm[Hg] MD Milady Mansfield Work Phone: [facility] 03-14-2024 11:26-0400 Heart rate 54 /min MD Milady Mansfield Work Phone: [facility] 03-14-2024 11:26-0400 Systolic blood pressure 157 mm[Hg] MD Milady Mansfield Work Phone: [facility] 08-01-2023 09:15-0500 Diastolic blood pressure 72 mm[Hg] MD Milady Mansfield Work Phone: [facility] 08-01-2023 09:15-0500 Heart rate 68 /min MD Milady Mansfield Work Phone: [facility] 08-01-2023 09:15-0500 Respiratory rate 16 /min MD Milady Mansfield Work Phone: [facility] 08-01-2023 09:15-0500 SaO2% (BldA) [Mass fraction] 97 % MD Milady Mansfield Work Phone: [facility] 08-01-2023 09:15-0500 Systolic blood pressure 118 mm[Hg] MD Milady Mansfield Work Phone: [facility] 08-01-2023 06:53-0500 Body height 180.34 cm MD Milady Mansfield Work Phone: [facility] 08-01-2023 06:53-0500 Body weight 90.71 kg MD Milady Mansfield Work Phone: [facility] 04-25-2023 08:30-0400 Body height 177.8 cm Milady Mansfield Other [facility] Other 04-25-2023 08:30-0400 Body mass index (BMI) [Ratio] 29.41 kg/m2 Milady Mansfield Other [facility] Other 04-25-2023 08:30-0400 Body weight 92.99 kg Milady Mansfield Other [facility] Other 04-25-2023 08:30-0400 Diastolic blood pressure 78 mm[Hg] Milady Mansfield Other [facility] Other 04-25-2023 08:30-0400 Systolic blood pressure 151 mm[Hg] Milady Mansfield Other [facility] Other Encounters Encounter Date Encounter Type Care Provider Facility Start: 05-06-2024 Non-patient / Non-visit MD Ct Mansfield Work Phone: [facility] Neurosurgery Work Phone: Start: 05-06-2024 End: 05-06-2024 Admission to same day surgery center MD Milady Mansfield Work Phone: [facility] [place] Start: 05-06-2024 End: 05-06-2024 ambulatory MD Milady Mansfield Work Phone: [facility] Work Phone: Start: 04-22-2024 End: 04-22-2024 Patient encounter procedure MD Milady Mansfield Work Phone: [facility] Work Phone: Start: 04-22-2024 End: 04-22-2024 ambulatory MD Milady Mansfield Work Phone: [facility] Work Phone: Start: 04-22-2024 Encounter for preprocedural laboratory examination Wyatt Mansfield [facility] Start: 04-17-2024 Patient encounter status MD Milady Mansfield Work Phone: [facility] Start: 04-17-2024 End: 04-17-2024 Encounter for general adult medical examination without abnormal findings MD Milady Mansfield Work Phone: [facility] Start: 04-17-2024 End: 04-17-2024 Patient encounter procedure MD Milady Mansfield Work Phone: [facility] Work Phone: Start: 04-16-2024 End: 04-16-2024 Patient encounter procedure MD Milady Mansfield Work Phone: [facility] Neurosurgery Work Phone: Start: 03-20-2024 Non-patient / Non-visit MD Ct Mansfield Work Phone: [facility] [employer] Work Phone: Start: 03-14-2024 End: 03-14-2024 Patient encounter procedure MD Milady Mansfield Work Phone: [facility] Work Phone: Start: 08-03-2023 End: 08-03-2023 ambulatory Maria Luisa Gudino Other [facility] Other Start: 08-03-2023 Office outpatient vi sit 10 minutes Maria Luisa Gudino [facility] Start: 08-01-2023 End: 08-01-2023 Admission to same day surgery center MD Milady Mansfield Work Phone: [facility] Work Phone: Start: 08-01-2023 End: 08-01-2023 ambulatory MD Milady Mansfield Work Phone: [facility] Work Phone: Start: 07-06-2023 End: 07-06-2023 ambulatory Milady Mansfield Other [facility] Other Start: 07-06-2023 Telephone encounter Milady Mansfield [facility] Start: 05-30-2023 End: 05-30-2023 ambulatory Misha Jacobs Other [facility] Other Start: 05-30-2023 Telephone encounter Misha Callahan lissette [facility] Gastroenterology Start: 05-05-2023 End: 05-05-2023 ambulatory Milady Mansfield Other [facility] Other Start: 05-05-2023 Telephone encounter Milady Mansfield [facility] Start: 04-27-2023 End: 04-27-2023 ambulatory Milady Mansfield Other [facility] Other Start: 04-27-2023 Telephone encounter Milady Mansfield [facility] Start: 04-25-2023 End: 04-25-2023 ambulatory Milady Mansfield Other [facility] Other Start: 04-25-2023 Encounter for genera l adult medical examination without abnormal findings Milady Mansfield [facility] Start: 04-25-2023 Initial preventive medicine new patient 40-64yrs Milady Mansfield [facility] Start: 04-10-2023 ambulatory [facility] Facility :[facility] Start: 09-27-2022 End: 09-28-2022 ambulatory NONE LISTED REQUEST Facility: Start: 04-14-2022 End: 04-15-2022 ambulatory NONE LISTED REQUEST Facility: Procedures Date Procedure Procedure Detail Performing Clinician Start: 05-06-2024 Excision of lumbar intervertebral disc MD Milady Mansfield Work Phone: Start: 08-01-2023 Colonoscopy MD Milady Mansfield Work Phone: Start: 04-14-[address] FALK L ISTED REQUEST Comment on above: Performed By: #### D ATPSA, DATBMP #### [facility] [address] [place] [address] Dr. Maren Hernandez Plan of Treatment Date Care Activity Detail Author Start: 05-06-2024 [facility] Start: 05-06-2024 [facility] Start: 05-06-2024 X-ray of lumbar spin e, single view XR lumbar spine 1V [facility] Start: 05-06-2024 XR Lumbar spine Sing le view [facility] Start: 08-01-2023 [facility] MR Lumbar spine WO contrast [facility] Patient Education [facility] Work Phone: Patient referral [facility] Work Phone: XR Lumbar spine 2 or 3 Views [facility] XR Lumbar spine Views [facility] Immunizations Immunization Date Immunization Notes Care Provider Fa cility 05-31-2021 COVID-19 Pfizer Milady Mansfield Other [facility] Payers Date Payer Category Payer Medicare [id number] 2024 Private Health Insurance CLI [id number] 2022 Unknown [id number] 1960 Self-pay 1960 Unknown [id number] [id number] Unknown [id number] [id number] [id number] Unknown [id number] 2.16.84 [id number] Unknown [id number] 2.16.8 [id number] Unknown [id number] 2.16.8 [id number] Unknown [id number] 2.16.8 [id number] Social History Date Type Detail Facility Unknown if ever smoked [facility] Other Sex Assigned At Sex Assigned At Bir th [facility] Other Start: 08-01-2023 End: 05-06-2024 Tobacco smoking status NHIS Ex-smoker (finding) [facility] Start: 1960 Sex Assigned At Male F [facility] Goals Date Patient Goal Desired Activity /State Evaluation note 08-03-2023 Note Date & Type Note Facility 08-03-2023 Evaluation note Encounter Date Diagnosis Assessment Notes Jul, Acute non-recurrent pansinusitis (ICD-10 - J01.40) Sinus infections can be triggered by a secondary infection from a viral URI or even seasonal allergies. Take medications as directed. Use saline nasal spray prior to presciption nasal spray. Take medications as directed, and complete all doses of medication even if you start to feel better. Patient advised to follow up with PCP if symptoms persist or worsen. Patient verbalized understanding and agreement with treatment plan. Jul, Other The patient was seen per scheduled virtual care visit in their home with their and my location (provider) is in the family practice office setting. The staff involved in visit was myself, Maria Luisa Holden APRN, CNP (provider) . Time spent with patient was approximately 10 minutes. 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 Will decrease dose and check uric acid. Last gout exacerbation was > 1 yr ago. Mar, Essential (primary) hypertension (ICD-10 - I10) Blood pressure remains well controlled at this time. Denies cardiac symptoms. Shows no signs or symptoms or poor control. Patient to continue with above medication and we will continue to monitor. Advised to pay attention to body and symptoms. Any developing patterns. Stay well hydrated. Mar, Wellness examination (ICD-10 - Z00.00) Mar, Screening PSA (prostate specific antigen) (ICD-10 - Z12.5) Mar, Type 2 diabetes mellitus with hyperglycemia, without long-term current use of insulin (ICD-10 - E11.65) Checks glucose at home. Last a1C was 6.5 - may need med. Check A1c Discussed how diabetes II can be delayed; such as, losing weight, being active, improving dietary intake. Discussed the risks for diabetes 2- obesity, family history, lack of physical activity. Explained that weight loss of 5-10% can lower her risk. Encouraged diet rich in fruits, vegetables, low fat dairy, low in red meat sweets and refined grains. Stay away from soda and fruit juice. Discussed drinks that are high in sugar. Explained the ratio on a food label between grams of carbs and grams of sugar. Discussed that sugar is not just found in sweets, but potatoes, pasta and bread as well. Increase activity 30 minutes most days of the week.. Increased blood sugars will aggravate infection and visa versa. Hemoglobin A1c is indication of average blood sugars over the course of the last 3 months. This should be monitored routinely. Discussed implications of uncontrolled blood sugar levels such as blindness, kidney failure and amputation secondary to neuropathy. Discussed S/S of hypo/hyperglyce simon. Mar, Well adult exam (ICD-10 - Z00.00) We have discussed the necessity of following up with PCP regularly as well as specialists, as needed. Discussed F/U with dentistry and optometry at least yearly. Discussed all preventative measures/ cancer screenings as applicable to this patient. Emphasized the importance of a reduced fat, low carb diet to promote heart health and controlled blood sugars. Reviewed social history and ensured patient is safe within the home today. Pt denies any abuse of alcohol, nicotine, caffeine or recreational drugs. I have ensured patient is of stable mental and physical health today. We have discussed appropriate F/U schedule as well as blood work and vaccinations that apply. All questions answered and patient is sent home pleased, without concerns. [facility] Other History general Narrative - Reported 02-25-2023 Note Date & Type Note Facility 02-25-2023 History general N arrative - Reported Type Medical History Gout Medical History Anxiety Medical History Hypertension Surgical History Retina, laser Surgical History Vitrectomy, left eye 02/2023 Surgical History Cataract both eyes [facility] Other Evaluation note Note Date & Type Note Facility Evaluation note No Information [facility] Other Evaluation note Note Date & Type Note Facility Evaluation note Diagnosis Onset Date History of colon polyps acut e [facility] Work Phone: Evaluation note Note Date & Type Note Facility Evaluation note Diagnosis Onset Date Right sided sciatica acute Lumbosacral disc herniation acute Right lumbar radiculopathy a rosalba Welcome to Medicare preventive visit [facility] Work Phone: Hospital Discharge instructions Note Date & Type Note Facility Hospital Discharge instructions Additional Instructions DISCHARGE INSTRUCTIONS FOR ENDOSCOPY FOR COLONOSCOPY: -Expect a gassy or full feeling after a colonoscopy. Report any NEW abdominal pain or vomiting. -Watch for rectal bleeding if you have a polyp removed. You may have oozing, but notify the doctor if you pass clots. -Avoid aspirin for 2 days IF a polyp is removed. -It is important to keep your appointments for follow up examinations because polyps can grow back. FOR CHAU/EGD/ERCP/PEG: -Your throat may feel sore today from the scope that the doctor passed through your throat to visualize your stomach. Take a throat lozenge or suck on ice to ease the discomfort. -Do NOT smoke. -You may notice some streaks of blood in your sputum if the doctor has taken a biopsy. Notify the doctor if you cough up large amounts of blood. -Expect a gassy or full feeling after esophagoscopy. Report any persistent pain or vomiting. -Take it easy today. You need not stay in bed, but avoid strenuous activities such as jogging. FOR SEDATION FOR 24 HOURS: -NO driving -Do NOT operate machinery such as power tools, lawn mowers, snow blowers, sewing machines, etc. -Avoid alcoholic beverages and drugs for allergies, nerves, or sleep. -Do NOT stay alone. Do NOT leave your child unattended. -Do NOT make important personal or business decisions or sign any legal documents. -Eat solid foods and drink liquids in smaller amounts than usual until normal appetite returns. If you should experience an upset stomach, liquids high in sugar content (soda, Ishaan-aid, non-acid juices) are recommended. -You can resume normal activities tomorrow. FOLLOW UP Please call the office and make a follow up appointment to see me as needed. Repeat colonoscopy in 5 years -Notify the doctor if you have any problems. -Office number [phone] [place] [facility] Work Phone: Hospital Discharge instructions Note Date & Type Note Facility Hospital Discharge instructions Additional Instructions DISCHARGE INSTRUCTIONS FOR LUMBAR/THORACIC DISCECTOMY, LAMINECTOMY, LAMINOTOMY, DECOMPRESSION DIET -No restrictions unless diabetic or cardiac ACTIVITY -Activity as tolerated; no lifting over 10 pounds -Encourage ambulation -No driving until seen by your physician; may ride in car -No need to cover incision site -May shower on Monday. -There is a liquid bandage on the wound, no dressing should be required unless drainage is noted. -Is ice 20 minutes every 1-2 hours as needed for back spasm -Use the prednisone provided if your leg pain returns to a significant degree. Otherwise please do not use the prednisone. OTHER -Call your physician's office for any of the following: fever, swelling, nausea, vomiting, drainage, numbness, tingling, or bowel and bladder changes. -Please call your physician's office to make an appointment to see your physician in two weeks. [facility] Work Phone: Summary Purpose Family History No Family History Records Found Relationship Condition Age at Onset Recorded Date/T tuyet Not Specified Diabetes mellitus Unknown father Heart disease Unknown Relationship Condition Age at Onset Recorded Date/T tuyet mother Diabetes mellitus Unknown History of stroke Unknown father Heart disease Unknown Hypertension Unknown Myocardial infarction Unknown History of coronary artery bypass surgery Unknown brother Unknown Diabetes mellitus Unknown sister Diabetes mellitus Unknown Malignant neoplasm Unknown Advance Directives No Advanced Directives Records Found Advance Directive Response Recorded Date/ Time Advance Directives No June 02, 2021 12:48pm Advance Directive Response Recorded Date/ Time Advance Directives No June 02, 2021 1:48pm Chief Complaint and Reason for Visit Chief Complaint Hx of Colon Polyps Reason for Visit History of colon kierra yps Chief Complaint sciatica pain Wellness lumbosacral disc herniation Reason for Visit Right sided sciatica Lumbosacral disc herniation Right lumbar radiculopathy Welcome to Medicare preventive visit Chief Complaint sciatica pain Wellness lumbosacral disc herniation lumbosacral disc herniation lumbosacral disc herniation Reason for Visit Right sided sciatica Lumbosacral disc herniation Right lumbar radiculopathy Welcome to Medicare preventive visit Additional Source Comments (unrecognized sect ion and content) No Status Records FoundNo Status Records FoundNo Status Records Found INFORMATION SOURCE (unrecogn ized section and content) DATE CREATED AUTHOR 09/27/2022 [facility] DATE CREATED AUTHOR AUTHOR'S ORGANIZ ATION 11/08/2022 Diane Boone [facility] DATE CREATED AUTHOR AUTHOR'S ORGANIZ ATION 06/12/2024 [facility] REASON FOR VISIT (unrecogniz ed section and content) Check Up (Dr. Mancera Patient )labslabsClinical Acute IllnessSINUS INFECTION SORE THROAT NEGATIVE COVIDBlood Sugars Care Teams (unrecognized sec tion and content) Team Status: Active Member Role Status Dates Milady Mansfield MD Primary Care Provider Active Team Status: Inactive Member Role Status Dates Misha Jacobs MD Attending Provider Active Milady Mansfield MD Primary Care Provider Active Team Status: Inactive Member Role Status Dates Milady Mansfield MD Primary Care Provide r, Attending Provider Active Start: March 14, 2024 End: March 14, 2024 Team Status: Active Member Role Status Munira Mansfield MD Primary Care Provide r, Attending Provider Active Start: March 20, 2024 Team Status: Inactive Member Role Status Munira Mansfield MD Primary Care Provider Active Start: April 16, 2024 End: April 16, 2024 Wyatt Mansfield MD Attending Provider Active Star t: April 16, 2024 End: April 16, 2024 Team Status: Inactive Member Role Status Munira Mansfield MD Primary Care Provide r, Attending Provider Active Start: April 17, 2024 End: April 17, 2024 Team Status: Inactive Member Role Status Munira Mansfield MD Primary Care Provider Active Start: April 22, 2024 End: April 22, 2024 Wyatt Mansfield MD Attending Provider Active Star t: April 22, 2024 End: April 22, 2024 Team Status: Inactive Member Role Status Munira Mansfield MD Primary Care Provider Active Start: May 06, 2024 End: May 06, 2024 Wyatt Mansfield MD Attending Provider Active Star t: May 06, 2024 End: May 06, 2024 Team Status: Active Member Role Status Dates Milady Mansfield MD Primary Care Provider Active Start: May 06, 2024 Wyatt Mansfield MD Attending Provider, Other Provider Active Start: May 06, 2024 Goals (unrecognized section and content) Goals may be documented in a n alternate section FOR RECORDS PERTAINING TO PATIENTS WHO ARE OR HAVE BEEN ENROLLED IN A CHEMICAL DEPENDENCY/SUBSTANCEABUSE PROGRAM, SOME INFORMATION MAY BE OMITTED. This clinical summary was aggregated from multiple sources. Caution should be exercised in using it in the provision of clinical care. This summary normalizes information from multiple sources, and as a consequence, information in this document may materially change the coding, format and clinical context of patient data. In addition, data may be omitted in some cases. CLINICAL DECISIONS SHOULD BE BASED ON THE PRIMARY CLINICAL RECORDS. [facility] [employer] provides no warranty or guarantee of the accuracy or completeness of information in this document.
--- NOTE | 2024-10-01 10:07 | ECG_ITS ---
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
--- NOTE | 2024-10-01 10:10 | CA_ITS ---
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1960 Requested By: CHRISTOPHER SINGH Order Number: [id number] Reading MD: XIANG SEAMAN Interpretive Statements Predominant rhythm is sinus with average rate of 62 bpm Tachycardia - max rate of 126 bpm (PSVT) - 1 episode of PSVT with rate of 126 bpm and duration of 5 beats Bradycardia (42% burden) - min rate of 47 bpm Ventricular ectopy - 19 PVC Patient triggered events: 1 - associated with lightheadedness - associated with NSR Impression: Predominant rhythm is sinus with average rate of 62 bpm Fastest rate is 126 bpm (PSVT) and slowest rate is 47 bpm Ventricular ectopy: - 19 PVC PSVT: - 1 episode of PSVT with rate of 126 bpm and duration of 5 beats Longest episode of sinus tachy is 35sec with rates between 108-126 bpm Longest episode of sinus chandan is 46min 27sec with rates between 50-56 bpm No atrial fib No pauses Electronically Signed On 10-09-2024 20:50:42 EST by XIANG SEAMAN
[2024-10-01 10:55] LABS: Basophils Percent Auto 0.3 % (0.2-2.0); Eosinophils Absolute Auto 0.1 10^3/uL (0.0-0.7); Eosinophils Percent Auto 2.1 % (0.9-7.0); Hematocrit 43.3 % (42.0-54.0); Hemoglobin 15.3 g/dL (14.0-18.0); Immature Granulocytes Abs Auto 0.01 10^3/uL (0.00-0.03); Immature Granulocytes Pct Auto 0.2 % (0.0-0.5); Lymphocytes Absolute Auto 1.2 10^3/uL (1.2-3.8); Lymphocytes Percent Auto 19.6 % (20.5-60.0); Mean Corpuscular HGB Conc 35.3 g/dL (29.9-35.2); Mean Corpuscular Hemoglobin 29.4 pg (25.9-34.0); Mean Corpuscular Volume 83.3 fL (80.0-94.0); Mean Platelet Volume 9.2 fL (9.5-13.5); Monocytes Absolute Auto 0.5 10^3/uL (0.3-0.8); Monocytes Percent Auto 8.4 % (1.7-12.0); Neutrophils Absolute Auto 4.2 10^3/uL (1.4-6.5); Neutrophils Percent Auto 69.4 % (43.0-75.0); Platelet Count 149 10^3/uL (150-450); White Blood Count 6.1 10^3/uL (4.0-11.0)
[2024-10-01 11:32] LABS: Anion Gap 14.1; BUN Creatinine Ratio 12.6; Calcium 9.4 mg/dL (8.5-10.1); Carbon Dioxide 29.8 mmol/L (21.0-32.0); Chloride 101 mmol/L (98-107); Estimated GFR (African America >60 (>=60 mL/min/1.73m^2); Estimated GFR (Non-African Ame >60 (>=60 mL/min/1.73m^2); Glucose 201 mg/dL (74-106); Potassium 3.9 mmol/L (3.5-5.1); Sodium 141 mmol/L (136-145); TSH W/ REFLEX FT4 1.604 uIU/mL (0.358-3.740); Troponin I High Sensitivity 5.5 pg/mL (4.0-76.1)
== END 2024-10-01 09:53 | disposition home or self-care (01) ==
LOC: LAB 09:55
PROVIDERS: PCP Family Medicine; Visit Provider Family Medicine
DX: R07.9 Chest pain, unspecified (principal); I10 Essential (primary) hypertension; R55 Syncope and collapse
CPT/HCPCS: 36415; 80048; 84443; 84484; 85025; 93005; 93242

== ENCOUNTER 2024-10-29 05:55 | Outpatient (OUT) | payer MEDICARE, SELFPAY ==
--- OUTSIDE RECORDS SUMMARY | 2024-10-29 05:57 | XMS_ITS | CCD ---
Author Organization [facility] Care Team Providers Care Acoustical Engineer Name Role Phone REQUEST, DR NONE LISTED [...] Provider MD Milady Mansfield Primary Care Provider Maria Luisa Gudino Unavailable [phone] MD Milady Mansfield Primary Care Provider MD Wyatt Mansfield Attending Provider [phone] Milady Mansfield MD Primary Care Provider Milady Mansfield MD Attending Provider Wyatt Mansfield Admitting Unavailable Wyatt Mansfield Attending Unavailable Milady Mansfield Primary Care Unavailable Milady Mansfield Admitting Unavailable Milady Mansfield Primary Care Unavailable Milady Mansfield Attending Unavailable Wyatt Mansfield Admitting Unavailable Wyatt Mansfield Attending Unavailable Milady Mansfield Primary Care Unavailable Allergies Allergy Classification Reported Allergen(s) Allergy Type Date of Onset Reaction(s) Facility (1 source) Sulfamethoxazole / Trimethoprim Drug Allergy 6 [facility] Repository Medications Current Medications Medication Drug Class(es) Dates Sig (Normalized) Sig (Original) azithromycin 250 mg oral tablet (2 sources) Macrolide Antimicrobial Start: 08-03-2023 Azithromycin 250 MG 2 tablet on the first day, then 1 tablet daily for 4 days Orally Once a day for 5 day(s) Jul, Active busPIRone hydrochloride 5 mg oral tablet (1 source) Start: 10-17-2024 take 1 tablet by mouth twice daily as needed Buspirone 5 mg tablet Active 5 MG PO Twice daily as needed for panic attack(s) October 17, 2024 12:00am losartan potassium 25 mg oral tablet (1 source) Angiotensin 2 Receptor Edy Start: 10-17-2024 take 1 tablet by mouth once daily Losartan 25 mg tablet Active 25 MG PO Daily October 17, 2024 12:00am sertraline 50 mg oral tablet (1 source) Serotonin Reuptake Inhibitor Start: 10-11-2024 take 1 tablet by mouth once daily Sertraline 50 mg tablet Active 50 MG PO Daily October 11, 2024 12:00am Completed/Discontinued Medications Medication Drug Class(es) Dates Sig (Normalized) Sig (Original) allopurinol 100 mg oral tablet (10 sources) Xanthine Oxidase Inhibitor Start: 10-19-2023 End: 10-26-2023 take 1 tablet by mouth once daily Allopurinol 100 mg tablet Discontinued 100 MG PO Daily October 19, 2023 12:00am October 26, 2023 8:40am FreeTextSig: TAKE 1 TABLET BY MOUTH EVERY DAY; Note: Source Status: Taking; Refills: 0; Qty: 90 Tablet; Provider: Donal Henning ( ) take 1 tablet by mouth once damion y Allopurinol 100 MG TAKE 1 TABLET BY MOUTH EVERY DAY for 90 Active aspirin 81 mg delayed release oral tablet (10 sources) Platelet Aggregation Inhibitor, Nonsteroidal Anti-inflammatory Drug Start: 10-19-2023 End: 10-26-2023 Aspirin (Adult Low Dose Aspirin) 81 mg tablet,delayed release (DR/EC) Discontinued 81 MG PO Daily October 19, 2023 12:00am October 26, 2023 8:40am take 1 tablet by mars th every twenty-four hours Aspirin 81 81 MG 1 tablet once a day Active Aspirin 81 81 MG 1 tablet once a day Active bisoprolol fumarate 5 mg / hydroCHLOROthiazide 6.25 mg oral tablet (13 sources) Thiazide Diuretic, beta-Adrenergic Edy Start: 08-01-2023 End: 10-17-2024 take 1 tablet by mouth once daily Bisoprolol-Hydrochlorothiazide (Ziac) 5-6.25 mg tablet Discontinued 1 TAB PO Daily September 11, 2024 10:05am October 17, 2024 11:25am On Hold: bradycardia cephalexin 500 mg oral capsule (3 sources) Cephalosporin Antibacterial Start: 05-06-2024 End: 05-30-2024 take 1 capsule by mouth three times daily Cephalexin 500 mg capsule Discontinued 500 MG PO Three times daily May 05, 2024 11:00pm May 30, 2024 9:31am cyclobenzaprine hydrochloride 10 mg oral tablet (3 sources) Muscle Relaxant Start: 05-06-2024 End: 05-30-2024 take 1 tablet by mouth three times daily as needed for muscle spasms Cyclobenzaprine 10 mg tablet Discontinued 10 MG PO Three times daily as needed for back spasms 26 06May 06, 2024 9:32am May 30, 2024 9:31am gabapentin 300 mg oral capsule (4 sources) Anti-epileptic Agent Start: 04-17-2024 End: 07-11-2024 take 2 capsule s by mouth twice daily Gabapentin 300 mg capsule Discontinued 600 MG PO Twice daily 120 April 16, 2024 11:00pm July 11, 2024 11:19am Start: 04-17-2024 take 600 mg by mouth twice daily Gabapentin Active 600 MG PO Twice daily 120 April 17, 2024 12:00am meloxicam 15 mg oral tablet (4 sources) Nonsteroidal Anti-inflammatory Drug Start: 03-25-2024 End: 05-30-2024 take 1 tablet by mouth once daily Meloxicam 15 mg tablet Discontinued 15 MG PO Daily March 24, 2024 11:00pm May 30, 2024 9:32am 24 hr metFORMIN hydrochloride 500 mg extended release oral tablet (16 sources) Biguanide Start: 08-01-2023 End: 08-26-2024 take 1 tablet by mouth once daily Metformin 500 mg tablet extended release 24 hr Discontinued 500 MG PO Daily March 04, 2024 9:19am August 26, 2024 1:08pm oxyCODONE hydrochloride 5 mg oral tablet (3 sources) Opioid Agonist Start: 05-06-2024 End: 05-30-2024 take 5-10 mg by mouth every six hours as needed for pain Oxycodone 5 mg tablet Discontinued 5 - 10 MG PO Q6H as needed for Pain 40 May 06, 2024 May 30, 2024 9:31am predniSONE 10 mg oral tablet (5 sources) Start: 07-11-2024 End: 10-01-2024 Prednisone 10 mg tablet Discontinued 10 MG PO As Directed 18 July 11, 2024 12:00am October 01, 2024 9:11am take 3 tablets for 3 days take 2 tablets for 3 days take 1 tablet for 3 days Start: 05-06-2024 End: 05-30-2024 Prednisone 10 mg tablets,dos e pack Discontinued 1 dose pk PO per package directions May 05, 2024 11:00pm May 30, 2024 9:31am take 4 tabs for 3 days then take 3 tabs for 3 days then take 2 tabs for 3 days then take 1 tab for 3 days Start: 05-06-2024 Prednisone Act heaven 1 dose pk PO per package directions May 06, 2024 12:00am take 4 tabs for 3 days then take 3 tabs for 3 days then take 2 tabs for 3 days then take 1 tab for 3 days Problems Problem Classification Problem Date Documented Date Episodic/Chronic Cardiac dysrhythmias (6 sources) Bradycardia; Translations: [Bradycardia, unspecified] 10-01-2024 Episodic Diabetes mellitus with complications (12 sources) Type 2 diabetes mellitus; Translations: [Type 2 diabetes mellitus with hyperglycemia] Chronic Essential hypertension (14 sources) Essential hypertension; Translations: [Essential (primary) hypertension] Chronic Gout and other crystal arthropathies (7 sources) Chronic tophaceous gout of left foot; Translations: [Idiopathic chronic gout, left ankle and foot, with tophus (tophi)] Chronic Nonspecific chest pain (5 sources) Chest pain; Translations: [Chest pain, unspecified] Onset: 10-01-2024 10-01-2024 Episodic Other and unspecified benign neoplasm (5 sources) History of polyp of colon; Translations: [Personal history of colonic polyps] 08-01-2023 Episodic Comment on above: Problem List clean-u p per request of Phys. EHR Cmte Other and unspecified benign neoplasm (1 source) Personal history of colonic polyps; Translations: [Personal history of colonic polyps] 08-01-2023 Episodic Other screening for suspected conditions (not mental disorders or infectious disease) (1 source) Encounter for screening for malignant neoplasm of prostate Episodic Other upper respiratory infections (1 source) Acute pansinusitis, unspecified Episodic Spondylosis; intervertebral disc disorders; other back problems (12 sources) Disorder of lumbosacral intervertebral disc; Translations: [Other intervertebral disc displacement, lumbosacral region] Onset: 05-06-2024 04-16-2024 Chronic Spondylosis; intervertebral disc disorders; other back problems (13 sources) Disorder of right sciatic nerve; Translations: [Sciatica, right side] Onset: 05-06-2024 10-26-2023 Episodic Syncope (6 sources) Syncope and collapse; Translations: [Syncope and collapse] Onset: 10-01-2024 10-01-2024 Episodic Results Test Name Value Interpretation Reference Range Facility Basophils Auto (Bld) [#/Vol] on 10-01-2024 Basophils (Bld) [#/Vol] Automated basoph il count 0.0-0.1 [facility] Basophils/100 WBC Auto (Bld) on 10-01-2024 Basophils/100 WBC (Bld) Automated basoph il % 0.2-2.0 [facility] Eosinophils/100 WBC Auto (Bl d)on 10-01-2024 Eosinophils/100 WBC (Bld) Automated eosinophil % 0.9-7.0 [facility] Erythrocyte distribution wid th Auto (RBC) [Ratio]on 10-01-2024 Erythrocyte distribution width (RBC) [Ratio] Erythrocyte distribution width [Ratio] by Automated count 11.0-15.0 [facility] Estimated glomerular filtrat ion rate (GFR) non- Americanon 10-01-2024 GFR/1.73 sq M.predicted among non-blacks MDRD (S/P/Bld) [Vol rate/Area] Estimated glomerular filtration rate (GFR) non- >=60 mL/min/1.73m 2 [facility] Hematocrit Auto (Bld) [Volum e fraction]on 10-01-2024 Hematocrit (Bld) [Volume fraction] Hematocrit [Volume Fraction] of Blood by Automated count 42.0-54.0 [facility] Hemoglobin [Mass/volume] in Bloodon 10-01-2024 Hemoglobin (Bld) [Mass/Vol] Hemoglobin [Mass/volume] in Blood 14.0-18.0 [facility] Laboratory - Chemistry and C hemistry - challengeon 10-01-2024 Calcium [Mass/Vol] 9.4 mg/dL 8.5-10.1 [facility] Chloride [Moles/Vol] 101 mmol/L 98-107 [facility] CO2 [Moles/Vol] 29.8 mmol/L 21.0-32.0 [facility] Creatinine [Mass/Vol] 1.11 mg/dL 0.70-1.30 [facility] GFR/1.73 sq M.predicted MDRD (S/P/Bld) [Vol rate/Area] mL/min/{1.73_m2} >=60 mL/min/1.73m 2 [facility] Glucose [Mass/Vol] 201 mg/dL High 74-106 [facility] Potassium [Moles/Vol] 3.9 mmol/L 3.5-5.1 [facility] Sodium [Moles/Vol] 141 mmol/L 136-145 [facility] TSH Qn 1.604 m[IU]/L 0.358-3.740 [facility] Urea nitrogen [Mass/Vol] 14.0 mg/dL 7.0-18.0 [facility] Urea nitrogen/Creatinine [Mass ratio] 12.6 mg/mg [facility] - Hematology and Cell countson 10-01-2024 Immature granulocytes/100 WBC (Bld) 0.2 % 0.0-0.5 [facility] Leukocytes [#/volume] correc bobby for nucleated erythrocytes in Blood by Automated counon 10-01-2024 WBC corrected for nucl RBC Auto (Bld) [#/Vol] Leukocytes [#/volume] corrected for nucleated erythrocytes in Blood by Automated coun 4.0-11.0 [facility] Lymphocytes Auto (Bld) [#/Vo l]on 10-01-2024 Lymphocytes (Bld) [#/Vol] Lymphocytes [#/volume] in Blood by Automated count 1.2-3.8 [facility] Lymphocytes/100 WBC Auto (Bl d)on 10-01-2024 Lymphocytes/100 WBC (Bld) Lymphocytes/100 leukocytes in Blood by Automated count Low 20.5-60.0 [facility] MCH Auto (RBC) [Entitic mass ]on 10-01-2024 MCH (RBC) [Entitic mass] MCH [Entitic ma ss] by Automated count 25.9-34.0 [facility] MCHC Auto (RBC) [Mass/Vol]on 10-01-2024 MCHC (RBC) [Mass/Vol] MCHC [Mass/volume] by Automated count High 29.9-35.2 [facility] MCV Auto (RBC) [Entitic vol] on 10-01-2024 MCV (RBC) [Entitic vol] MCV [Entitic volume] by Automated count 80.0-94.0 [facility] Monocytes Auto (Bld) [#/Vol] on 10-01-2024 Monocytes (Bld) [#/Vol] Automated blood monocyte count 0.3-0.8 [facility] Monocytes/100 WBC Auto (Bld) on 10-01-2024 Monocytes/100 WBC (Bld) Automated monocy te % 1.7-12.0 [facility] Neutrophils Auto (Bld) [#/Vo l]on 10-01-2024 Neutrophils (Bld) [#/Vol] Neutrophils [#/volume] in Blood by Automated count 1.4-6.5 [facility] Neutrophils/100 WBC Auto (Bl d)on 10-01-2024 Neutrophils/100 WBC (Bld) Automated neutrophil % 43.0-75.0 [facility] No Panel Informationon 10-01 Eosinophils # (Auto) 0.1 10 3/uL 0.0-0.7 [facility] Immature Granulocyte # (Auto) 0.01 10 3/uL 0.00-0.03 [facility] Troponin I High Sensitivity 5.5 pg/mL 4.0-76.1 [facility] Comment on above: CUT-OFF POINTS HAVE BEEN ESTABLISHED BASED ON THE FOURTHUNIVERSAL DEFINITION OF MYOCARDIAL INFARCTION. THE UPPERREFERENCE LIMIT (URL) OF TROPONIN, DEFINED THE 99THPERCENTILE OF cTnI DISTRIBUTION IN A REFERENCE POPULATION,HAS BEEN CONFIRMED THE DECISION THRESHOLD FOR MIDIAGNOSIS.99TH PERCENTILE = 76.2 PG/MLNOTE: HIGH-SENSITIVITY TROPONIN ASSAY IS NOT INTENDED TO BEUSED IN ISOLATION BUT SHOULD BE INTERPRETED IN CONJUNCTIONWITH OTHER DIAGNOSTIC AND CLINICAL INFORMATION. Platelet mean volume Auto (B ld) [Entitic vol]on 10-01-2024 Platelet mean volume (Bld) [Entitic vol] Platelet mean volume [Entitic volume] in Blood by Automated count Low 9.5-13.5 [facility] Platelets Auto (Bld) [#/Vol] on 10-01-2024 Platelets (Bld) [#/Vol] Platelets [#/volume] in Blood by Automated count Low 150-450 [facility] RBC Auto (Bld) [#/Vol]on RBC (Bld) [#/Vol] Erythrocytes [#/volume] in Blood by Automated count 4.70-6.10 [facility] Serum or plasma anion gap de terminationon 10-01-2024 Anion gap [Moles/Vol] Serum or plasma anion gap determination [facility] Glucose mean value [Mass/vol ume] in Blood Estimated from glycated hemoglobinon 07-31-2024 Average glucose Estimated from glycated hemoglobin (Bld) [Mass/Vol] Glucose mean value [Mass/volume] in Blood Estimated from glycated hemoglobin [facility] - Hematology and Cell countson 07-31-2024 HbA1c (Bld) [Mass fraction] 6.6 % High 4.5-6.2 [facility] Comment on above: ADA RECOMMENDED LIMI T 4.0 - 6.0ADA THERAPEUTIC TARGET < 7.0ACTION SUGGESTED> 7.0 Capillary blood glucose joaquín urement by glucometer (mass/volume)Ordered By: Wyatt Mansfield on 05-06-2024 Glucose [Mass/Vol] 137 mg/dL Normal [facility] Comment on above: Random Glucose Refer ence Range is dependent on time and content of last meal. Glucose of more than 200 mg/dL in a nonstressed, ambulatory subject supports the diagnosis of Diabetes Mellitus. Result Comment: [place] om Glucose Reference Range is dependent on time and content of last meal. Glucose of more than 200 mg/dL in a nonstressed, ambulatory subject supports the diagnosis of Diabetes Mellitus. Performed By: #### G LULS #### Point of Care testing , Glucose Poct Glucometerson 0 05-06-2024 Commemt1 Glu2: Cleaned Meter Normal [facility] Comment on above: Result Comment: PERF ORMED BY: [place] [address] PATHOLOGIST SALES AND SERVICE OFFICER STUART RODRIGUEZ M.D. Performed By: #### G LULS #### Point of Care testing , Commemt1 Glu2: Cleaned Meter Normal [facility] Comment on above: Result Comment: PERF ORMED BY: [place] [id number] PATHOLOGIST SALES AND SERVICE OFFICER STUART RODRIGUEZ M.D. Performed By: #### G LULS #### Point of Care testing , Glucose [Mass/Vol] 147 mg/dL Normal [facility] Comment on above: Result Comment: [place] Glucose Reference Range is dependent on time and content of last meal. Glucose of more than 200 mg/dL in a nonstressed, ambulatory subject supports the diagnosis of Diabetes Mellitus. Performed By: #### G LULS #### Point of Care testing , No Panel InformationOrdered By: Wyatt Mansfield on 05-06-2024 Bedside Glucose Comment Glu2: cleaned meter [facility] XR lumbar spine 1Von 024 XR lumbar spine 1V [facility] [place] [address] [place] [id number] XRay Report Signed Patient: Fernando Vick MR#: [id number] : 1960 Acct:[id number] Age/Sex: 64 / M ADM Date: 05/06/24 Loc: [place] Room: Type: [facility] Attending Dr: Wyatt Mansfield MD Copies [...] Camacho Em M.D.05/06/2024 4:22 PM Dictation Location: [place] [address] Transcribed By: [facility] 05/06/241621 Dictated By: Camacho Em DO 05/06/241619 Signed By: 05/06/24 162 Normal [facility] Automated basophil %Ordered By: Wyatt Mansfield on 04-22-2024 Basophils/100 WBC (Bld) 0.4 % Normal . [facility] Comment on above: Performed By: #### C BC #### [address] Automated basophil countOrde red By: Wyatt Mansfield on 04-22-2024 Basophils (Bld) [#/Vol] 0.0 10*3/uL Normal 0.0-0.2 [facility] Comment on above: Result Comment: PERF ORMED BY: [place] [address] PATHOLOGIST SALES AND SERVICE OFFICER STUART RODRIGUEZ M.D. Performed By: #### C BC #### [address] Automated blood monocyte cou ntOrdered By: Wyatt Mansfield on 04-22-2024 Monocytes (Bld) [#/Vol] 0.5 10*3/uL Normal 0.0-0.8 [facility] Comment on above: Performed By: #### C BC #### [address] Automated eosinophil %Ordere d By: Wyatt Mansfield on 04-22-2024 Eosinophils/100 WBC (Bld) 3.6 % Normal . [facility] Comment on above: Performed By: #### C BC #### [address] Automated eosinophil countOr dered By: Wyatt Mansfield on 04-22-2024 Eosinophils (Bld) [#/Vol] 0.2 10*3/uL Normal 0.0-0.45 [facility] Comment on above: Performed By: #### C BC #### [address] Automated monocyte %Ordered By: Wyatt Mansfield on 04-22-2024 Monocytes/100 WBC (Bld) 9.5 % Normal . [facility] Comment on above: Performed By: #### C BC #### [address] Automated neutrophil %Ordere d By: Wyatt Mansfield on 04-22-2024 Neutrophils/100 WBC (Bld) 60.3 % Normal . [facility] Comment on above: Performed By: #### C BC #### [address] Basic Metabolic Panelon 03-29 GFR/1.73 sq M.predicted MDRD (S/P/Bld) [Vol rate/Area] mL/min/{1.73_m2} Normal [facility] Comment on above: Performed By: #### B MP #### [place] [address] [place] Calcium [Mass/volume] in Ser um or PlasmaOrdered By: Wyatt Mansfield on 04-22-2024 Calcium [Mass/Vol] 9.6 mg/dL Normal 8.6-10.3 [facility] Comment on above: Result Comment: PERF ORMED BY: [place] [address] PATHOLOGIST SALES AND SERVICE OFFICER STUART RODRIGUEZ M.D. Performed By: #### B MP #### [place] [address] [place] Carbon dioxide, total [Moles /volume] in Serum or PlasmaOrdered By: Wyatt Mansfield on 04-22-2024 CO2 [Moles/Vol] 29.0 mmol/L Normal 21.0-31.0 [facility] Comment on above: Performed By: #### B MP #### [place] [address] [place] Chloride [Moles/volume] in S vinny or PlasmaOrdered By: Wyatt Mansfield on 04-22-2024 Chloride [Moles/Vol] 103 mmol/L Normal 98-107 [facility] Comment on above: Performed By: #### B MP #### [address] Complete Blood Count Auto Di ffon 04-22-2024 Mean Corpuscular HGB Conc 35.1 g/dL Normal 32.5-35.6 [facility] Comment on above: Performed By: #### C BC #### [facility] [address] NRBC% 0.2 /100{WBC} Normal 0-0.5 [facility] Comment on above: Performed By: #### C BC #### [address] Creatinine [Mass/volume] in Serum or PlasmaOrdered By: Wyatt Mansfield on 04-22-2024 Creatinine [Mass/Vol] 0.99 mg/dL Normal 0.70-1.30 [facility] Comment on above: Performed By: #### B MP #### [address] ECG 12 lead ECGon 04-22-2024 ECG 12 lead ECG [facility] [place] [address] [place] [address] Electrocardiograph Report Signed Patient: Fernando Vick MR#: [id number] : 1960 Acct:[id number] Age/Sex: 64 / M ADM Date: 04/22/24 Loc: Room: Type: [facility] Attending Dr: Wyatt Mansfield MD Ordering Provider: [...] previous ECGs available Confirmed by Issa Ozuna ([id number]) on 04/23/2024 10:30:06 PM Referred By: Electronically Signed By: Issa Ozuna Transcribed By: MUS Signed By Issa Ozuna MD 04/23/24 2230 Normal [facility] Erythrocyte distribution wid th [Ratio] by Automated countOrdered By: Wyatt Mansfield on 04-22-2024 Erythrocyte distribution width (RBC) [Ratio] 13.1 % Normal 12.0-14.8 [facility] Comment on above: Performed By: #### C BC #### [address] Erythrocytes [#/volume] in B lood by Automated countOrdered By: Wyatt Mansfield on 04-22-2024 RBC (Bld) [#/Vol] 4.72 10*6/uL Normal 3.90-5.[address] [facility] Comment on above: Performed By: #### C BC #### [address] Glucose [Mass/volume] in Ser um or PlasmaOrdered By: Wyatt Mansfield on 04-22-2024 Glucose [Mass/Vol] 185 mg/dL High 70-100 [facility] Comment on above: ADA recommended refe rence rangeRandom Glucose Reference Range is dependent on time and content of last meal. Glucose of more than 200 mg/dL in a nonstressed, ambulatory subject supports the diagnosis of Diabetes Mellitus. Result Comment: [place] om Glucose Reference Range is dependent on time and content of last meal. Glucose of more than 200 mg/dL in a nonstressed, ambulatory subject supports the diagnosis of Diabetes Mellitus. ADA recommended reference range Performed By: #### B MP #### [address] Hematocrit [Volume Fraction] of Blood by Automated countOrdered By: Wyatt Mansfield on 04-22-2024 Hematocrit (Bld) [Volume fraction] 40.4 % Normal 38.8-50.0 [facility] Comment on above: Performed By: #### C BC #### [address] Hemoglobin [Mass/volume] in BloodOrdered By: Wyatt Mansfield on 04-22-2024 Hemoglobin (Bld) [Mass/Vol] 14.2 g/dL Normal 13.0-17.0 [facility] Comment on above: Performed By: #### C BC #### [address] Leukocytes [#/volume] correc bobby for nucleated erythrocytes in Blood by Automated counOrdered By: Wyatt Mansfield on 04-22-2024 WBC corrected for nucl RBC Auto (Bld) [#/Vol] 5.5 10*3/uL 4.1-10.5 [facility] Leukocytes [#/volume] in Blo od by Automated countOrdered By: Wyatt Mansfield on 04-22-2024 WBC (Bld) [#/Vol] 5.5 10*3/uL Normal 4.1-10.5 [facility] Comment on above: Performed By: #### C BC #### [address] Lymphocytes [#/volume] in Bl ood by Automated countOrdered By: Wyatt Mansfield on 04-22-2024 Lymphocytes (Bld) [#/Vol] 1.4 10*3/uL Normal 1.00-4.8 [facility] Comment on above: Performed By: #### C BC #### [address] Lymphocytes/100 leukocytes i n Blood by Automated countOrdered By: Wyatt Mansfield on 04-22-2024 Lymphocytes/100 WBC (Bld) 26.2 % Normal . [facility] Comment on above: Performed By: #### C BC #### [address] MCH [Entitic mass] by Automa bobby countOrdered By: Wyatt Mansfield on 04-22-2024 MCH (RBC) [Entitic mass] 30.0 pg Normal 27.5-35.2 [facility] Comment on above: Performed By: #### C BC #### [address] MCHC Auto (RBC) [Mass/Vol]Or dered By: Wyatt Mansfield on 04-22-2024 MCHC (RBC) [Mass/Vol] 35.1 g/dL 32.5-35.6 [facility] MCV [Entitic volume] by Auto mated countOrdered By: Wyatt Mansfield on 04-22-2024 MCV (RBC) [Entitic vol] 85.5 fL Normal 83.5-101 [facility] Comment on above: Performed By: #### C BC #### [address] Neutrophils [#/volume] in Bl ood by Automated countOrdered By: Wyatt Mansfield on 04-22-2024 Neutrophils (Bld) [#/Vol] 3.3 10*3/uL Normal 1.8-7.7 [facility] Comment on above: Performed By: #### C BC #### [address] No Panel InformationOrdered By: Wyatt Mansfield on 04-22-2024 Estimated GFR (CKD-EPI) > 60.0 mL/Min [facility] Creatinine Clearance (Chem N/A [facility] Nucleated erythrocytes [Pres ence] in Blood by Automated countOrdered By: Wyatt Mansfield on 04-22-2024 Nucleated RBC Auto Ql (Bld) 0.2 /100{WBC} 0-0.5 [facility] Platelet mean volume [Entiti c volume] in Blood by Automated countOrdered By: Wyatt Mansfield on 04-22-2024 Platelet mean volume (Bld) [Entitic vol] 7.7 fL Normal 6.6-10.1 [facility] Comment on above: Performed By: #### C BC #### [address] Platelets [#/volume] in Bloo d by Automated countOrdered By: Wyatt Mansfield on 04-22-2024 Platelets (Bld) [#/Vol] 159 10*3/uL Normal 150-450 [facility] Comment on above: Performed By: #### C BC #### [address] Potassium [Moles/volume] in Serum or PlasmaOrdered By: Wyatt Mansfield on 04-22-2024 Potassium [Moles/Vol] 4.0 mmol/L Normal 3.5-5.1 [facility] Comment on above: Performed By: #### B MP #### [facility] [address] Serum or plasma anion gap de terminationOrdered By: Wyatt Mansfield on 04-22-2024 Anion gap [Moles/Vol] 11.0 mmol/L Normal 6.0-15.0 [facility] Comment on above: Performed By: #### B MP #### [facility] [address] [place] [address] [place] Sodium [Moles/volume] in Ser um or PlasmaOrdered By: Wyatt Mansfield on 04-22-2024 Sodium [Moles/Vol] 139 mmol/L Normal 136-145 [facility] Comment on above: Performed By: #### B MP #### [facility] [address] [place] [address] Urea nitrogen [Mass/volume] in Serum or PlasmaOrdered By: Wyatt Mansfield on 04-22-2024 Urea nitrogen [Mass/Vol] 22 mg/dL Normal 7-25 [facility] Comment on above: Performed By: #### B MP #### [facility] [address] [place] [address] Estimated glomerular filtrat ion rate (GFR) non- Americanon 03-20-2024 GFR/1.73 sq M.predicted among non-blacks MDRD (S/P/Bld) [Vol rate/Area] mL/min/{1.73_m2} >=60 [facility] - Chemistry and C hemistry - challengeon 03-20-2024 Creatinine [Mass/Vol] 0.92 mg/dL 0.70-1.30 [facility] GFR/1.73 sq M.predicted MDRD (S/P/Bld) [Vol rate/Area] mL/min/{1.73_m2} >=60 [facility] Glucose Glucometer (BldC) [M ass/Vol]Ordered By: Misha Jacobs on 08-01-2023 Glucose [Mass/Vol] 141 mg/dL [facility] Comment on above: Random Glucose Refer ence Range is dependent on time and content of last meal. Glucose of more than 200 mg/dL in a nonstressed, ambulatory subject supports the diagnosis of Diabetes Mellitus. No Panel InformationOrdered By: Misha Jacobs on 08-01-2023 Bedside Glucose Comment Glu2: cleaned meter [facility] GLYCOHEMOGLOBIN A1Con 2022 ADA RECOMMENDATION SEE BELOW Normal [facility] Comment on above: Result Comment: ADA RECOMMENDED LIMIT 4.0 - 6.0 ADA THERAPEUTIC TARGET < 7.0 ACTION SUGGESTED > 7.0 Performed By: #### D ATA1C #### [facility] [address] [place] [address] Dr. Maren Hernandez Glucose [Mass/Vol] 140 mg/dL Normal [facility] Comment on above: Performed By: #### D ATA1C #### [facility] [address] [place] [address] Dr. Maren Hernandez HbA1c (Bld) [Mass fraction] 6.5 % Critically high 4.5-6.2 [facility] Comment on above: Performed By: #### D ATA1C #### [facility] [address] [place] [address] Dr. Maren Hernandez CBC AUTO DIFFon 04-14-2022 BASO # 0.0 103/ul Normal 0.0-0.1 [facility] Comment on above: Performed By: #### D ATCBC #### [facility] [address] [address] [address] Maren Hernandez Basophils/100 WBC (Bld) 0.5 % Normal 0.2-2.0 [facility] Comment on above: Performed By: #### D ATCBC #### [facility] [address] [address] [address] Maren Hernandez EO # 0.2 103/ul Normal 0.0-0.7 [facility] Comment on above: Performed By: #### D ATCBC #### [facility] [address] [address] [address] Maren Hernandez Eosinophils/100 WBC (Bld) 3.6 % Normal 0.9-7.0 [facility] Comment on above: Performed By: #### D ATCBC #### [facility] [address] [place] [address] Dr. Maren Hernandez Erythrocyte distribution width (RBC) [Ratio] 12.5 % Normal 11.0-15.0 [facility] Comment on above: Performed By: #### D ATCBC #### [facility] [address] [place] [address] Dr. Maren Hernandez Hematocrit (Bld) [Volume fraction] 43.3 % Normal 42.0-54.0 [facility] Comment on above: Performed By: #### D ATCBC #### [facility] [address] [place] [address] Dr. Maren Hernandez Hemoglobin (Bld) [Mass/Vol] 14.9 g/dL Normal 14.0-18.0 [facility] Comment on above: Performed By: #### D ATCBC #### [facility] [address] [place] [address] Dr. Maren Hernandez IG # 0.02 10e3/ul Normal 0.00-0.03 [facility] Comment on above: Performed By: #### D ATCBC #### [facility] [address] [place] [address] Dr. Maren Hernandez IG % 0.4 % Normal 0.0-0.5 [facility] Comment on above: Performed By: #### D ATCBC #### [facility] [address] [place] [address] Dr. Maren Hernandez LYMPH # 1.3 103/ul Normal 1.2-3.8 [facility] Comment on above: Performed By: #### D ATCBC #### [facility] [address] [place] [address] Dr. Maren Hernandez Lymphocytes/100 WBC (Bld) 23.6 % Normal 20.5-60.0 [facility] Comment on above: Performed By: #### D ATCBC #### [facility] [address] [place] [address] Dr. Maren Hernandez MCH (RBC) [Entitic mass] 30.0 pg Normal 25.9-34.0 [facility] Comment on above: Performed By: #### D ATCBC #### [facility] [address] [place] [address] Dr. Maren Hernandez MCHC (RBC) [Mass/Vol] 34.4 g/dL Normal 29.9-35.2 [facility] Comment on above: Performed By: #### D ATCBC #### [facility] [address] [place] [address] Dr. Maren Hernandez MCV (RBC) [Entitic vol] 87.3 fL Normal 80.0-94.0 [facility] Comment on above: Performed By: #### D ATCBC #### [facility] [address] [place] [address] Dr. Maren Hernandez MONO # 0.6 103/ul Normal 0.3-0.8 [facility] Comment on above: Performed By: #### D ATCBC #### [facility] [address] [place] [address] Dr. Maren Hernandez Monocytes/100 WBC (Bld) 10.0 % Normal 1.7-12.0 [facility] Comment on above: Performed By: #### D ATCBC #### [facility] [address] [place] [address] Dr. Maren Hernandez NEUT # 3.4 103/ul Normal 1.4-6.5 [facility] Comment on above: Performed By: #### D ATCBC #### [facility] [address] [place] [address] Dr. Maren Hernandez Neutrophils/100 WBC (Bld) 61.9 % Normal 43.0-75.0 [facility] Comment on above: Performed By: #### D ATCBC #### [facility] [address] [place] [address] Dr. Maren Hernandez Platelet mean volume (Bld) [Entitic vol] 9.2 fL Critically low 9.5-13.5 [facility] Comment on above: Performed By: #### D ATCBC #### [facility] [address] [place] [address] Dr. Maren Hernandez PLT 152 103/ul Normal 150-450 [facility] Comment on above: Performed By: #### D ATCBC #### [facility] [address] [address] [address] Maren Hernandez RBC 4.96 106/ul Normal 4.70-6.10 [facility] Comment on above: Performed By: #### D ATCBC #### [facility] [address] [address] [address] Maren Hernandez WBC 5.5 103/ul Normal 4.0-11.0 [facility] Comment on above: Performed By: #### D ATCBC #### [facility] [address] [address] [address] Maren Hernandez LOIS- BMP WITH LIPIDon 2021 Anion gap [Moles/Vol] 10.2 mmol/L Normal [facility] Comment on above: Performed By: #### D ATPSA DATBMP #### [facility] [address] [place] [address] Dr. Maren Hernandez Calcium [Mass/Vol] 9.0 mg/dL Normal 8.5-10.1 [facility] Comment on above: Performed By: #### D ATPSA DATBMP #### [facility] [address] [place] [address] Dr. Maren Hernandez Chloride [Moles/Vol] 101 mmol/L Normal 98-107 [facility] Comment on above: Performed By: #### D ATPSA, DATBMP #### [facility] [address] [address] [address] Maren Hernandez Cholesterol [Mass/Vol] 179 mg/dL Normal <=200 [facility] Comment on above: Performed By: #### D ATPSA, DATBMP #### [facility] [address] [place] [address] Dr. Maren Hernandez Cholesterol in HDL [Mass/Vol] 37 mg/dL Critically low 40-60 [facility] Comment on above: Performed By: #### D ATPSA, DATBMP #### [facility] [address] [place] [address] Dr. Maren Hernandez Cholesterol in LDL [Mass/Vol] 107.2 mg/dL Normal [facility] Comment on above: Performed By: #### D ATPSA, DATBMP #### [facility] [address] [address] [address] Maren Hernandez CO2 [Moles/Vol] 30.8 mmol/L Normal 21.0-32.0 [facility] Comment on above: Performed By: #### D ATPSA, DATBMP #### [facility] [address] [address] [address] Maren Hernandez Creatinine [Mass/Vol] 0.85 mg/dL Normal 0.70-1.30 [facility] Comment on above: Performed By: #### D ATPSA, DATBMP #### [facility] [address] [place] [address] Dr. Maren Hernandez EGFR-AF NIGERIEN >60 Normal >=60 [facility] Comment on above: Performed By: #### D ATPSA, DATBMP #### [facility] [address] [address] [address] Maren Hernandez EGFR-NON AF NIGERIEN >60 Normal >=60 [facility] Comment on above: Performed By: #### D ATPSA, DATBMP #### [facility] [address] [address] [address] Maren Hernandez Glucose [Mass/Vol] 137 mg/dL Normal [facility] Comment on above: Performed By: #### D ATPSA, DATBMP #### [facility] [address] [address] [address] Maren Hernandez Performed By: #### D ATA1C #### [facility] [address] [address] [address] Maren Hernandez HDL NORMAL > or = 60 mg/dl - LOW CARDIOVASCULAR RISK <40 mg/dl - HIGH CARDIOVASCULAR RISK Normal [facility] Comment on above: Performed By: #### D ATPSA, DATBMP #### [facility] [address] [address] [address] Maren Hernandez LDL CALC NORMAL SEE BELOW Normal [facility] Comment on above: Result Comment: <100 mg/dl OPTIMAL 100 - 129 mg/dl NEAR OR ABOVE OPTIMAL 130 - 159 mg/dl BORDERLINE HIGH 160 - 189 mg/dl HIGH >190 mg/dl VERY HIGH Performed By: #### D ATPSA, DATBMP #### [facility] [address] [address] [address] Maren Hernandez Potassium [Moles/Vol] 4.0 mmol/L Normal 3.5-5.1 [facility] Comment on above: Performed By: #### D ATPSA, DATBMP #### [facility] [address] [address] [address] Maren Hernandez Sodium [Moles/Vol] 138 mmol/L Normal 136-145 [facility] Comment on above: Performed By: #### D ATPSA, DATBMP #### [facility] [address] [address] [address] Maren Hernandez Triglyceride [Mass/Vol] 174 mg/dL Critically high <=150 [facility] Comment on above: Performed By: #### D ATPSA, DATBMP #### [facility] [address] [address] [address] Maren Hernandez Urea nitrogen [Mass/Vol] 17.0 mg/dL Normal 7.0-18.0 [facility] Comment on above: Performed By: #### D ATPSA, DATBMP #### [facility] [address] [address] [address] Maren Hernandez Urea nitrogen/Creatinine [Mass ratio] 20.0 mg/mg Normal [facility] Comment on above: Performed By: #### D ATPSA, DATBMP #### [facility] [address] [address] [address] Maren Hernandez VLDL CALC 34.8 mg/dL Normal [facility] Comment on above: Performed By: #### D ATPSA, DATBMP #### [facility] [address] [address] [address] Maren Hernandez GLYCOHEMOGLOBIN A1Con 2021 ADA RECOMMENDATION SEE BELOW Normal [facility] Comment on above: Result Comment: ADA RECOMMENDED LIMIT 4.0 - 6.0 ADA THERAPEUTIC TARGET < 7.0 ACTION SUGGESTED > 7.0 Performed By: #### D ATA1C #### [facility] [address] [place] [address] Dr. Maren Hernandez HbA1c (Bld) [Mass fraction] 6.4 % Critically high 4.5-6.2 [facility] Comment on above: Performed By: #### D ATA1C #### [facility] [address] [address] [address] Maren Hernandez Vital Signs Date Time Vital Sign Value Performing Clinician Facility 10-17-2024 11:22-0500 Body height 180.34 cm Milady Mansfield MD Work Phone: [phone] [place] [address] 10-17-2024 11:22-0500 Body mass index (BMI) [Ratio] 27.1 kg/m2 Milady Masnfield MD Work Phone: [phone] [place] [address] 10-17-2024 11:22-0500 Body weight 88.45 kg Milady Mansfield MD Work Phone: [facility] 10-17-2024 11:22-0500 Diastolic blood pressure 76 mm[Hg] Milady Mansfield MD Work Phone: [facility] 10-17-2024 11:22-0500 Heart rate 71 /min Milady Mansfield MD Work Phone: [facility] 10-17-2024 11:22-0500 Systolic blood pressure 165 mm[Hg] Milady Mansfield MD Work Phone: [facility] 10-01-2024 09:04-0500 Body height 180.34 cm Milady Mansfield MD Work Phone: [facility] 10-01-2024 09:04-0500 Body mass index (BMI) [Ratio] 27.6 kg/m2 Milady Mansfield MD Work Phone: [facility] 10-01-2024 09:04-0500 Body weight 89.81 kg Milady Mansfield MD Work Phone: [facility] 10-01-2024 09:04-0500 Diastolic blood pressure 72 mm[Hg] Milady Mansfield MD Work Phone: [facility] 10-01-2024 09:04-0500 Heart rate 57 /min Milady Mansfield MD Work Phone: [facility] 10-01-2024 09:04-0500 Systolic blood pressure 156 mm[Hg] Milady Mansfield MD Work Phone: [facility] 07-11-2024 11:16-0500 Body height 180.34 cm Milady Mansfield MD Work Phone: [facility] 05-06-2024 12:27-0400 Diastolic blood pressure 78 mm[Hg] MD Milady Mansfield Work Phone: [facility] 05-06-2024 12:27-0400 Heart rate 69 /min MD Milady Mansfield Work Phone: [facility] 05-06-2024 12:27-0400 Respiratory rate 16 /min MD Milady Mansfield Work Phone: [facility] 05-06-2024 12:27-0400 SaO2% (BldA) [Mass fraction] 94 % MD Milady Mansfield Work Phone: [facility] 05-06-2024 12:27-0400 Systolic blood pressure 131 mm[Hg] MD Milady Mansfield Work Phone: [facility] 05-06-2024 10:40-0400 Body temperature 97.1 [degF] MD Milady Mansfield Work Phone: [facility] 05-06-2024 10:40-0400 Inhaled oxygen flow rate 8 L/min MD Milady Mansfield Work Phone: [facility] 05-06-2024 07:25-0400 Body height 180.34 cm MD Milady Mansfield Work Phone: [facility] 05-06-2024 07:25-0400 Body weight 91 kg MD Milady Mansfield Work Phone: [facility] 04-17-2024 08:33-0400 Body height 180.34 cm MD Milady Mansfield Work Phone: [facility] 04-17-2024 08:33-0400 Body mass index (BMI) [Ratio] 27.4 kg/m2 MD Milady Mansfield Work Phone: [facility] 04-17-2024 08:33-0400 Body weight 89.35 kg MD Milady Mansfield Work Phone: [facility] 04-17-2024 08:33-0400 Diastolic blood pressure 82 mm[Hg] MD Milady Mansfield Work Phone: [facility] 04-17-2024 08:33-0400 Heart rate 55 /min MD Milady Mansfield Work Phone: [facility] 04-17-2024 08:33-0400 Systolic blood pressure 148 mm[Hg] MD Milady Mansfield Work Phone: [facility] 04-16-2024 15:16-0400 Body height 180.34 cm MD Milady Mansfield Work Phone: [facility] 04-16-2024 15:16-0400 Body mass index (BMI) [Ratio] 27.5 kg/m2 MD Milady Mansfield Work Phone: [facility] 04-16-2024 15:16-0400 Body weight 89.41 kg MD Milady Mansfield Work Phone: [facility] 03-14-2024 11:26-0400 Body height 180.34 cm MD Milady Mansfield Work Phone: [facility] 03-14-2024 11:26-0400 Body mass index (BMI) [Ratio] 27.4 kg/m2 MD Milady Mansfield Work Phone: [facility] 03-14-2024 11:26-0400 Body weight 89.35 kg MD Milady Mansfield Work Phone: [facility] 03-14-2024 11:26-0400 Diastolic blood pressure 80 mm[Hg] MD Milady Mansfield Work Phone: [facility] 03-14-2024 11:26-0400 Heart rate 54 /min MD Milady Mansfield Work Phone: [facility] 03-14-2024 11:26-0400 Systolic blood pressure 157 mm[Hg] MD Milady Mansfield Work Phone: [facility] 08-01-2023 09:15-0500 Diastolic blood pressure 72 mm[Hg] MD Milady Mansfield Work Phone: [facility] 08-01-2023 09:15-0500 Heart rate 68 /min MD Milady Mansfield Work Phone: [facility] 08-01-2023 09:15-0500 Respiratory rate 16 /min MD Milady Mansfield Work Phone: [facility] 08-01-2023 09:15-0500 SaO2% (BldA) [Mass fraction] 97 % MD Milady Mansfield Work Phone: [facility] 08-01-2023 09:15-0500 Systolic blood pressure 118 mm[Hg] MD Milady Mansfield Work Phone: [facility] 08-01-2023 06:53-0500 Body height 180.34 cm MD Milady Mansfield Work Phone: [facility] 08-01-2023 06:53-0500 Body weight 90.71 kg MD Milady Mansfield Work Phone: [facility] 04-25-2023 08:30-0400 Body height 177.8 cm Milady Mansfield Other [facility] [employer] Other 04-25-2023 08:30-0400 Body mass index (BMI) [Ratio] 29.41 kg/m2 Milady Mansfield Other [facility] [employer] Other 04-25-2023 08:30-0400 Body weight 92.99 kg Milady Mansfield Other [facility] [employer] Other 04-25-2023 08:30-0400 Diastolic blood pressure 78 mm[Hg] Milady Mansfield Other [facility] [employer] Other 04-25-2023 08:30-0400 Systolic blood pressure 151 mm[Hg] Milady Mansfield Other [facility] [employer] Other Encounters Encounter Date Encounter Type Care Provider Facility Start: 10-17-2024 End: 10-17-2024 ambulatory Milady Mansfield MD Work Phone: [facility] Work Phone: Start: 10-17-2024 End: 10-17-2024 Patient encounter procedure Milady Mansfield MD Work Phone: [facility] Work Phone: Start: 10-01-2024 End: 10-01-2024 ambulatory Milady Mansfield MD Work Phone: [facility] Work Phone: Start: 10-01-2024 End: 10-01-2024 Patient encounter procedure Milady Mansfield MD Work Phone: [facility] Work Phone: Start: 07-31-2024 Non-patient / Non-visit Milady Mansfield MD Work Phone: [facility] [employer] Work Phone: Start: 07-11-2024 End: 07-11-2024 Patient encounter procedure Milady Mansfield MD Work Phone: [facility] Physician [facility] Work Phone: Start: 05-06-2024 Non-patient / Non-visit MD Ct Mansfield Work Phone: [facility] Work Phone: Start: 05-06-2024 End: 05-06-2024 Admission to same day surgery center MD Milady Mansfield Work Phone: [facility] [place] Start: 05-06-2024 End: 05-06-2024 ambulatory MD Milady Mansfield Work Phone: [facility] Work Phone: Start: 04-22-2024 End: 04-22-2024 Patient encounter procedure MD Milady Mansfield Work Phone: [facility] Work Phone: Start: 04-22-2024 End: 04-22-2024 ambulatory MD Milady Mansfield Work Phone: [facility] Work Phone: Start: 04-22-2024 Encounter for preprocedural laboratory examination Wyatt Mansfield [facility] Physician [facility] Start: 04-17-2024 Patient encounter status MD Milady Mansfield Work Phone: [facility] Start: 04-17-2024 End: 04-17-2024 Encounter for general adult medical examination without abnormal findings MD Milady Mansfield Work Phone: [facility] Start: 04-17-2024 End: 04-17-2024 Patient encounter procedure MD Milady Mansfield Work Phone: [facility] Physician [facility] Work Phone: Start: 04-16-2024 End: 04-16-2024 Patient encounter procedure MD Milady Mansfield Work Phone: [facility] Physician [facility] Work Phone: Start: 03-20-2024 Non-patient / Non-visit MD Ct Mansfield Work Phone: [facility] Physician [facility] Work Phone: Start: 03-14-2024 End: 03-14-2024 Patient encounter procedure MD Milady Mansfield Work Phone: [facility] Physician [facility] Work Phone: Start: 08-03-2023 End: 08-03-2023 ambulatory Maria Luisa Gudino Other [employer] Other Start: 08-03-2023 Office outpatient vi sit 10 minutes Maria Luisa Gudino [facility] Start: 08-01-2023 End: 08-01-2023 Admission to same day surgery center MD Milady Mansfield Work Phone: [facility] Work Phone: Start: 08-01-2023 End: 08-01-2023 ambulatory MD Milady Mansfield Work Phone: [facility] Work Phone: Start: 07-06-2023 End: 07-06-2023 ambulatory Milady Mansfield Other [employer] Other Start: 07-06-2023 Telephone encounter Milady Mansfield [facility] Start: 05-30-2023 End: 05-30-2023 ambulatory Misha Jacobs Other [employer] Other Start: 05-30-2023 Telephone encounter Misha Callahan [facility] Gastro[facility] Start: 05-05-2023 End: 05-05-2023 ambulatory Milady Mansfield Other [employer] Other Start: 05-05-2023 Telephone encounter Milady Mansfield [facility] Start: 04-27-2023 End: 04-27-2023 ambulatory Milady Mansfield Other [employer] Other Start: 04-27-2023 Telephone encounter Milady Mansfield [facility] Start: 04-25-2023 End: 04-25-2023 ambulatory Milady Mansfield Other [employer] Other Start: 04-25-2023 Encounter for genera l adult medical examination without abnormal findings Milady Mansfield [facility] Start: 04-25-2023 Initial preventive medicine new patient 40-64yrs Milady Mansfield [facility] Start: 04-10-2023 ambulatory Ascencion Es Rai Facility :[facility] Start: 09-27-2022 End: 09-28-2022 ambulatory NONE LISTED REQUEST Facility: Start: 04-14-2022 End: 04-15-2022 ambulatory NONE LISTED REQUEST Facility:[facility]1 Procedures Date Procedure Procedure Detail Performing Clinician Start: 05-06-2024 Excision of lumbar intervertebral disc MD Milady Mansfield Work Phone: Start: 08-01-2023 Colonoscopy MD Milady Mansfield Work Phone: Start: 04-14-[address] FALK L ISTED REQUEST Comment on above: Performed By: #### D ATPSA, DATBMP #### [facility] [address] [place] [address] Dr. Maren Hernandez Plan of Treatment Date Care Activity Detail Author Start: 10-01-2024 Patient referral [facility] Work Phone: Start: 10-01-2024 EKG 12 channel panel [facility] Start: 05-06-2024 [facility] Start: 05-06-2024 [facility] Start: 05-06-2024 X-ray of lumbar spin e, single view XR lumbar spine 1V [facility] Start: 05-06-2024 XR Lumbar spine Sing le view [facility] Start: 08-01-2023 [facility] Holter monitor study [facility] MR Lumbar spine WO contrast [facility] Patient Education [facility] Work Phone: Patient referral [facility] Work Phone: XR Hip - right [address] [facility] XR Lumbar spine 2 or 3 Views [facility] XR Lumbar spine Views [facility] Immunizations Immunization Date Immunization Notes Care Provider Fa cility 05-31-2021 COVID-19 Pfizer Milady Mansfield Other [facility] Payers Date Payer Category Payer Medicare [id number] 2024 Private Health Insurance [facility] [id number] 2022 Unknown [id number] 1960 Self-pay 1960 Unknown [id number] [id number] Unknown [id number] [id number] Unknown [id number] [id number] Unknown [id number] [id number] Unknown [id number] [id number] Unknown [id number] [id number] Social History Date Type Detail Facility Unknown if ever smoked [employer] Other Sex Assigned At Sex Assigned At Bir th [employer] Other Start: 08-01-2023 End: 05-06-2024 Tobacco smoking status NHIS Ex-smoker (finding) [facility] Start: 1960 Sex Assigned At Male F [facility] Start: 10-02-2024 Sex Patient sex un known (finding) [facility] Start: 10-17-2024 Sex Male (finding) [facility] Goals Date Patient Goal Desired Activity /State Clinical Notes 02-25-2023 to 10-01-2024 Note Date & Type Note Facility 10-01-2024 Evaluation note Diagnosis Onset Date Resolution Bradycardia acute October 01, 2024 8:54am Chest pain acute October 01, 2024 8:54am Essential (primary) hypertension acute October 01 8:54am Syncope and collapse acute Febr [id number] 8:54am Essential (primary) hypertension acute October 17 025 11:19am Palpitations acute September 11:19am Syncope and collapse acute 2024 11:19am [facility] Work Phone: 1(405) 867-175011-14-2024 Evaluation note* Diagnosis Onset Date Resolution Status Admit Date Lumbosacral disc herniation acute July 11, 2024 10:58am Bradycardia acute October 01, 2024 8:54am Chest pain acute October 01, 2024 8:54am Essential (primary) hypertension acute October 01 8:54am Syncope and collapse acute 2024 8:54am [facility] Work Phone: [phone] 266-302012-07-2023 Evaluation note* Encounter Date Diagnosis Assessment Notes Treatment Notes Treatment Clinical Notes Jul, Acute non-recurrent pansinusitis (ICD-10 - [...] spent with patient was approximately 10 minutes. 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 Discussed S/S of hypo/hyperglycemia. Mar, Well adult exam (ICD-10 - Z00.00) [...] patient is sent home pleased, without concerns. [employer] Other 07-01-2023 History general Narrative - Reported* Type Description Date Medical History Gout Medical History Anxiety Medical History Hypertension Surgical History Retina, laser Surgical History Vitrectomy, left eye 02/2023 Surgical History Cataract both eyes [employer] Other Evaluation noteNo InformationNort [employer] Other Evaluation note* Diagnosis Onset Date Resolution Status History of colon polyps acut e [facility] Work Phone: Evaluation note* Diagnosis Onset Date Resolution Status Right sided sciatica acute Lumbosacral disc herniation acute Right lumbar radiculopathy a cute Welcome to Medicare preventive visit acute [facility] Work Phone: Hospital Discharge instructions Additional Instructions DISCHARGE INSTRUCTIONS [...] if you have any problems. -[facility] number [phone] Work [facility]: Hospital Discharge instructions Additional Instructions DISCHARGE INSTRUCTIONS [...] appointment to see your physician in two weeks.[facility] Work Phone: Summary Purpose Family History Relationship Condition Age at Onset Recorded Date/T tuyet Not Specified Diabetes mellitus Unknown father Heart disease Unknown Relationship Condition Age at Onset Recorded Date/T tuyet mother Diabetes mellitus Unknown History of stroke Unknown father Heart disease Unknown Hypertension Unknown Myocardial infarction Unknown History of coronary artery bypass surgery Unknown brother Unknown Diabetes mellitus Unknown sister Diabetes mellitus Unknown Malignant neoplasm Unknown Advance Directives Advance Directive Response Recorded Date/ Time Advance [...] Welcome to Medicare preventive visit Chief Complaint Admit Date 9 week po Discectomy July 11, 2024 10:58am Dizzy/Not Feeling Well October 01 8:54am R55 - October 01, 2024 9 :32am Reason for Visit Admit Date Lumbosacral disc herniation June 10:58am Bradycardia October 01, 2024 8 :54am Chest pain October 01, 2024 8 :54am Essential (primary) hypertension 2024 8:54am Syncope and collapse October 01, 2024 8:54am Chief Complaint Admit Date Dizzy/Not Feeling Well October 01 8:54am R55 - October 01, 2024 9 :32am 6 month f/u/Medical Concerns October 172024 11:19am Reason for Visit Admit Date Bradycardia October 01, 2024 8 :54am Chest pain October 01, 2024 8 :54am Essential (primary) hypertension 2024 8:54am Syncope and collapse October 01, 2024 8:54am Essential (primary) hypertension ua2024 11:19am Palpitations October 17, 2024 11:19am Syncope and collapse October 17, 2024 11:19am Additional Source Comments (unrecognized sect ion and content) No Status Records FoundNo Status Records FoundNo Status Records Found INFORMATION SOURCE (unrecogn ized section and content) DATE CREATED AUTHOR 09/27/2022 [facility] DATE CREATED AUTHOR AUTHOR'S ORGANIZ ATION 11/08/2022 [facility] DATE CREATED AUTHOR AUTHOR'S ORGANIZ ATION 10/03/2024 [facility] REASON FOR VISIT (unrecogniz ed section and content) Check Up (Dr. Mancera Patient )labslabsClinical Acute IllnessSINUS INFECTION SORE THROAT NEGATIVE COVIDBlood Sugars Care Teams (unrecognized sec tion and content) Team Status: Active Member Role Status Munira Mansfield MD Primary Care Provider Active Team Status: Active Member Role Status Munira Mansfield MD Primary Care Provide r, Attending Provider Active Start: July 31, 2024 Team Status: Inactive Member Role Status Munira Mansfield MD Primary Care Provide r, Attending Provider Active Start: October 01, 2024 End: October 01, 2024 Team Status: Inactive Member Role Status Munira Mansfield MD Primary Care Provide r, Attending Provider Active Start: October 17, 2024 End: October 17, 2024 Team Status: Active Member Role Status Munira Mansfield MD Primary Care Provider Active Team Status: Inactive Member Role Status Munira Jacobs MD Attending Provider Active Milady Mansfield MD Primary Care Provider Active Team Status: Inactive Member Role Status Munira [...] Other Provider Active Start: May 06, 2024 Team Status: Inactive Member Role Status Munira Mansfield MD Primary Care Provider Active Start: July 11, 2024 End: July 11, 2024 Wyatt Mansfield MD Attending Provider Active Star t: July 11, 2024 End: July 11, 2024 Team Status: Active Member Role Status Dates Milady Mansfield MD Primary Care Provide r, Attending Provider Active Start: July 31, 2024 Team Status: Inactive Member Role Status Dates Milady Mansfield MD Primary Care Provide r, Attending Provider Active Start: October 01, 2024 End: October 01, 2024 Team Status: Inactive Member Role Status Dates Milady Mansfield MD Primary Care Provide r, Attending Provider Active Start: October 17, 2024 End: October 17, 2024 Goals (unrecognized section and content) Goals [...] BE BASED ON THE PRIMARY CLINICAL RECORDS. [employer] provides no warranty or guarantee of the accuracy or completeness of information in this document.
--- NOTE | 2024-10-29 06:15 | NM_ITS ---
Patient Name: ENIO SILVA MR#: [id number] : 1960 Exam Date: 10/29/2024 Ordering Doctor: DR Milady Mansfield M.D. RADIOLOGY REPORT PROCEDURE: NM BUFFY PERF SPECT REST STR COMPARISON: None. INDICATIONS: CHEST PAIN, HYPERTENSION TECHNIQUE: Exam Description: Stress/Rest two day protocol gated SPECT Rest Imagin.0 mCi Tc-99m Cardiolite IV on 10/29/2024 Stress Imaging 30.9 mCi Tc-99m Cardiolite IV on 10/29/2024 Exercise Protocol: John Heart Rate (bpm): Rest: 75 Max: 157 PMHR: 101 Blood Pressure: Rest: 128/78 Max: 158/88 Exercise Time: Minutes: 7 Seconds: 29 Stage Reached: Stage: 3 Mets 10.1 Symptoms: Rest and peak stress ECG findings were pending and the exercise portion of the study was pending per attending physician Dr. NICHOLSON . For more details please see separate cardiac stress test report. FINDINGS: QUALITY OF STUDY: Good PERFUSION DEFECT: LOCATION: Inferoseptal SIZE: Moderate SEVERITY: Mild TYPE: Fixed; likely representing diaphragm attenuation WALL MOTION: Normal wall motion LV SIZE: 88 mL. TID / TCD: 0.6 LVEF: Calculated EF 68%. SUMMARY: Myocardial perfusion imaging study is normal CONCLUSION: 1. Myocardial perfusion is normal with diaphragmatic attenuation 2. Normal global left ventricular systolic function 3. No evidence of transient ischemic dilatation Dictated by: Sohan Vickers M.D. on 10/29/2024 at 14:43 Approved by: Sohan Vickers M.D. on 10/29/2024 at 14:50
--- NOTE | 2024-10-29 09:50 | PC.NURSE ---
Nursing Note Cardiac Stress Test Reviewed: Medication, allergies and patient history reviewed. Stress Test: [ x] Patient tolerated stress test well. [ ] Patient unable to tolerate walking on treadmill. Switched to Lexiscan stress test. [x ] No chest pain noted per patient [ ] Chest pain that resolved prior to leaving stress lab. [ ] No dyspnea noted. [x ] Dyspnea that resolved prior to leaving stress lab. [x ] Patient left stress lab asymptomatic and hemodynamically stable. [ ] Patient taken to the Emergency Room due to non-resolving symptoms following stress test. [ x] Patient achieved target heart rate. [ ] Patient unable to achieve target heart rate. [ ] Aminophylline administered as reversal agent to Lexiscan (Regadenoson). [ ] Nitro administered. Nursing Comments:Pt had Cardiolite test done and tolerated well. NO CP noted and pt ambulated to cafeteria for breakfast.
--- NOTE | 2024-10-29 14:46 | P.STRESS_ITS ---
Stress Test Stress Test Requesting physician: Milady Mansfield Procedure: Exercise Cardiolite stress test General Information: Reason for Stress Test: Bradycardia Cardiac History and Risk Factors: HTN, DM2, former smoker Resting 12 - Lead Electrocardiogram: Normal rate and rhythm @ 77 Normal axis Mild downsloping of ST-segment in III vs. drag from biphasic T-wave Stress Test: Protocol: John protocol was followed, with injection of Cardiolite once target heart rate was achieved. Exercise capacity: Good exercise capacity. Total exercise time of 7 minutes 30 seconds reached John stage at 3.4MPH, 14% grade, & 10.1 METs. Blood pressure: Initial: 128/78, Maximum: 158/88 Rate & rhythm: Patient remained in sinus rhythm during the exercise and recovery portions of the study.? The maximum heart rate was 157, which was 101% of the maximum predicted heart rate. ST-segments & T-waves: During exercise, lead III ST segment assumed upward slop ing, which resumed to a flattened ST-segment at the end of recovery. Patient response/symptoms: Asymptomatic Interpretation: Non-diagnostic stress test based on ST-segment changes in III. There were no reciprocal changes in II or aVF. Asymptomatic. Cardiolite imaging interpretation will be reported separately. Clinical correlation required.?
== END 2024-10-29 05:56 | disposition home or self-care (01) ==
LOC: NM 05:55
PROVIDERS: PCP Family Medicine; Visit Provider Family Medicine
DX: R07.9 Chest pain, unspecified (principal); I10 Essential (primary) hypertension
CPT/HCPCS: 78452; 93017; A9500

== ENCOUNTER 2025-04-19 07:28 | Outpatient (OUT) | payer MEDICARE, SELFPAY ==
--- OUTSIDE RECORDS SUMMARY | 2025-04-19 07:31 | XMS_ITS | CCD ---
Author Organization [facility] Care Team Providers Care Mechanical Detailer Name Role Phone REQUEST, DR NONE LISTED Consulting Unavaila ble MISC, DR ELLIS Admitting Unavailable MISC, DR ELLIS Attending Unavailable MANCERA, DR RAQUEL Mir Primary Care Unavailable REQUEST, NONE LISTED Attending Unavaila ble BEAN, DR RAQUEL Mir Primary Care Unavailable REQUEST, NONE LISTED Admitting Unavaila ble REQUEST, NONE LISTED Consulting Unavaila ble [facility]. Attending Unavailable Milady Mansfield Unavailable Misha Jacobs Unavailable [phone] MD Misha Jacobs Attending Provider MD Milady Mansfield Primary Care Provider [phone] Maria Luisa Gudino Unavailable [phone] MD Milady Mansfield Primary Care Provider MD Wyatt Mansfield Attending Provider [phone] Milady Mansfield MD Primary Care Provider [phone] Milady Mansfield MD Attending Provider [phone] Wyatt Mansfield Admitting Unavailable Wyatt Mansfield Attending Unavailable Milady Mansfield Primary Care Unavailable Milady Mansfield Admitting Unavailable Milady Mansfield Primary Care Unavailable Milady Mansfield Attending Unavailable Wyatt Mansfield Admitting Unavailable Wyatt Mansfield Attending Unavailable Milady Mansfield Primary Care Unavailable Milady Mansfield MD Primary Care Provider Milady Mansfield MD Attending Provider Allergies Allergy Classification Reported Allergen(s) Allergy Type Date of Onset Reaction(s) Facility (1 source) Sulfamethoxazole / Trimethoprim Drug Allergy 6 [facility] Repository Medications Current Medications Medication Drug Class(es) Dates Sig (Normalized) Sig (Original) azithromycin 250 mg oral tablet (2 sources) Macrolide Antimicrobial Start: 08-03-2023 Azithromycin 250 MG 2 tablet on the first day, then 1 tablet daily for 4 days Orally Once a day for 5 day(s) Jul, Active Blood-Glucose Meter misc (1 source) Start: 04-18-2025 Blood-Glucose Meter misc Active 0 .MEDSUPPLY 1 April 18, 2025 12:00am As directed. Please dispense brand preferred by insurance. losartan potassium 25 mg oral tablet (4 sources) Angiotensin 2 Receptor Edy Start: 10-17-2024 End: 02-03-2025 take 1 tablet by mouth once daily Losartan 25 mg tablet Active 25 MG PO Daily February 03, 2025 3:38pm Complies with drug therapy 24 hr metFORMIN hydrochloride 500 mg extended release oral tablet (20 sources) Biguanide Start: 02-03-2025 take 1 tablet by mouth once daily Metformin 500 mg tablet extended release 24 hr Active 0 .ROUTE .COMPLEX February 03, 2025 3:39pm TAKE 1 TABLET BY MOUTH DAILY Complies with drug therapy Start: 08-01-2023 End: 02-03-2025 take 1 tablet by mouth once daily Metformin 500 mg tablet extended release 24 hr Discontinued 500 MG PO Daily November 18, 2024 11:56am February 03, 2025 3:40pm Multivitamin (Daily Multi-Vitamin) tablet (1 source) Start: 04-18-2025 take 1 tablet by mouth once daily Multivitamin (Daily Multi-Vitamin) tablet Active 1 TAB PO Daily April 18, 2025 12:00am Complies with drug therapy sertraline 50 mg oral tablet (4 sources) Serotonin Reuptake Inhibitor Start: 02-03-2025 take 1 tablet by mouth once daily Sertraline 50 mg tablet Active 0 .ROUTE .COMPLEX February 03, 2025 9:57am TAKE 1 TABLET BY MOUTH EVERY DAY Complies with drug therapy Start: 10-11-2024 End: 02-03-2025 take 1 tablet by mouth once daily Sertraline 50 mg tablet Discontinued 50 MG PO Daily October 30, 2024 11:34am February 03, 2025 9:57am Completed/Discontinued Medications Medication Drug Class(es) Dates Sig (Normalized) Sig (Original) allopurinol 100 mg oral tablet (11 sources) Xanthine Oxidase Inhibitor Start: 10-19-2023 End: [...] aspirin 81 mg delayed release oral tablet (11 sources) Platelet Aggregation Inhibitor, Nonsteroidal Anti-inflammatory Drug [...] mg / hydroCHLOROthiazide 6.25 mg oral tablet (15 sources) Thiazide Diuretic, beta-Adrenergic Edy Start: 08-01-2023 End: 10-17-2024 take 1 tablet by mouth once daily Bisoprolol-Hydrochlorothiazide (Ziac) 5-6.25 mg tablet Discontinued 1 TAB PO Daily September 11, 2024 11:05am October 17, 2024 12:25pm On Hold: bradycardia busPIRone hydrochloride 5 mg oral tablet (2 sources) Start: 10-17-2024 End: 10-23-2024 take 1 tablet by mouth twice daily as needed Buspirone 5 mg tablet Discontinued 5 MG PO Twice daily as needed for panic attack(s) October 17, 2024 1:00am October 23, 2024 1:17pm cephalexin 500 mg oral capsule (4 sources) Cephalosporin Antibacterial Start: 05-06-2024 End: 05-30-2024 take 1 capsule by mouth three times daily Cephalexin 500 mg capsule Discontinued 500 MG PO Three times daily May 06, 2024 12:00am May 30, 2024 10:31am cyclobenzaprine hydrochloride 10 mg oral tablet (4 sources) Muscle Relaxant Start: 05-06-2024 End: 05-30-2024 take 1 tablet by mouth three times daily as needed for muscle spasms Cyclobenzaprine 10 mg tablet Discontinued 10 MG PO Three times daily as needed for back spasms 26 06May 06, 2024 10:32am May 30, 2024 10:31am gabapentin 300 mg oral capsule (5 sources) Anti-epileptic Agent Start: 04-17-2024 End: 07-11-2024 take 2 capsule s by mouth twice daily Gabapentin 300 mg capsule Discontinued 600 MG PO Twice daily 120 April 17, 2024 12:00am July 11, 2024 12:19pm Start: 04-17-2024 take 600 mg by mouth twice daily Gabapentin Active 600 MG PO Twice daily 120 April 17, 2024 12:00am meloxicam 15 mg oral tablet (5 sources) Nonsteroidal Anti-inflammatory Drug Start: 03-25-2024 End: 05-30-2024 take 1 tablet by mouth once daily Meloxicam 15 mg tablet Discontinued 15 MG PO Daily March 25, 2024 12:00am May 30, 2024 10:32am oxyCODONE hydrochloride 5 mg oral tablet (4 sources) Opioid Agonist Start: 05-06-2024 End: 05-30-2024 take 5-10 mg by mouth every six hours as needed for pain Oxycodone 5 mg tablet Discontinued 5 - 10 MG PO Q6H as needed for Pain 40 May 06, 2024 May 30, 2024 10:31am predniSONE 10 mg oral tablet (7 sources) Start: 07-11-2024 End: 10-01-2024 Prednisone 10 mg tablet Discontinued 10 MG PO As Directed 18 July 11, 2024 1:00am October 01, 2024 10:11am take 3 tablets for 3 days take 2 tablets for 3 days take 1 tablet for 3 days Start: 05-06-2024 End: 05-30-2024 Prednisone 10 mg tablets,dos e pack Discontinued 1 dose pk PO per package directions May 06, 2024 12:00am May 30, 2024 10:31am take 4 tabs for 3 days then [...] Problem Date Documented Date Episodic/Chronic Cardiac dysrhythmias (8 sources) Bradycardia; Translations: [Bradycardia, unspecified] 10-01-2024 Episodic Diabetes mellitus with complications (14 sources) Type 2 diabetes mellitus; Translations: [Type 2 diabetes mellitus with hyperglycemia] Chronic Essential hypertension (16 sources) Essential hypertension; Translations: [Essential (primary) hypertension] Chronic Gout and other crystal arthropathies (7 sources) Chronic tophaceous gout of left foot; Translations: [Idiopathic chronic gout, left ankle and foot, with tophus (tophi)] Chronic Nonspecific chest pain (6 sources) Chest pain; Translations: [Chest pain, unspecified] Onset: 10-01-2024 10-01-2024 Episodic Other and unspecified benign neoplasm (6 sources) History of polyp of colon; Translations: [Personal history of colonic polyps] 08-01-2023 Episodic Comment on above: Problem List clean-u p per request of Phys. EHR Cmte Other and unspecified benign neoplasm (1 source) Personal history of colonic polyps; Translations: [Personal history of colonic polyps] 08-01-2023 Episodic Other screening for suspected conditions (not mental disorders or infectious disease) (3 sources) Encounter for screening for malignant neoplasm of prostate; Translations: [Patient encounter status] Episodic Other upper respiratory infections (1 source) Acute pansinusitis, unspecified Episodic Spondylosis; intervertebral disc disorders; other back problems (14 sources) Disorder of lumbosacral intervertebral disc; Translations: [Other intervertebral disc displacement, lumbosacral region] Onset: 05-06-2024 04-16-2024 Chronic Spondylosis; intervertebral disc disorders; other back problems (15 sources) Disorder of right sciatic nerve; Translations: [Sciatica, right side] Onset: 05-06-2024 10-26-2023 Episodic Syncope (7 sources) Syncope and collapse; Translations: [Syncope and collapse] Onset: 10-01-2024 10-01-2024 Episodic Results Test Name Value Interpretation Reference Range Facility Basophils Auto (Bld) [#/Vol] on 10-01-2024 Basophils (Bld) [#/Vol] Automated basoph il count 0.0-0.1 [facility] Basophils/100 WBC Auto (Bld) on 10-01-2024 Basophils/100 WBC (Bld) Automated basoph il % 0.2-2.0 [facility] Eosinophils/100 WBC Auto (Bl d)on 10-01-2024 Eosinophils/100 WBC (Bld) Automated eosinophil % 0.9-7.0 [facility] Erythrocyte distribution wid th Auto (RBC) [Ratio]on 10-01-2024 Erythrocyte distribution width (RBC) [Ratio] Erythrocyte distribution width [Ratio] by Automated count 11.0-15.0 [facility] Estimated glomerular filtrat ion rate (GFR) non- Americanon 10-01-2024 GFR/1.73 sq M.predicted among non-blacks MDRD (S/P/Bld) [Vol rate/Area] Estimated glomerular filtration rate (GFR) non- >=60 mL/min/1.73m 2 [facility] Hematocrit Auto (Bld) [Volum e fraction]on 10-01-2024 Hematocrit (Bld) [Volume fraction] Hematocrit [Volume Fraction] of Blood by Automated count 42.0-54.0 [facility] Hemoglobin [Mass/volume] in Bloodon 10-01-2024 Hemoglobin (Bld) [Mass/Vol] Hemoglobin [Mass/volume] in Blood 14.0-18.0 [facility] Laboratory - Chemistry and C hemistry - challengeon 10-01-2024 Calcium [Mass/Vol] 9.4 mg/dL 8.5-10.1 [facility] Chloride [Moles/Vol] 101 mmol/L 98-107 [facility] CO2 [Moles/Vol] 29.8 mmol/L 21.0-32.0 [facility] Creatinine [Mass/Vol] 1.11 mg/dL 0.70-1.30 [facility] GFR/1.73 sq M.predicted MDRD (S/P/Bld) [Vol rate/Area] mL/min/{1.73_m2} >=60 mL/min/1.73m 2 [facility] Glucose [Mass/Vol] 201 mg/dL High 74-106 [facility] Potassium [Moles/Vol] 3.9 mmol/L 3.5-5.1 [facility] Sodium [Moles/Vol] 141 mmol/L 136-145 [facility] TSH Qn 1.604 m[IU]/L 0.358-3.740 [facility] Urea nitrogen [Mass/Vol] 14.0 mg/dL 7.0-18.0 [facility] Urea nitrogen/Creatinine [Mass ratio] 12.6 mg/mg [facility] Laboratory - Hematology and Cell countson 10-01-2024 Immature granulocytes/100 WBC (Bld) 0.2 % 0.0-0.5 [facility] Leukocytes [#/volume] correc bobby for nucleated erythrocytes in Blood by Automated counon 10-01-2024 WBC corrected for nucl RBC Auto (Bld) [#/Vol] Leukocytes [#/volume] corrected for nucleated erythrocytes in Blood by Automated coun 4.0-11.0 [facility] Lymphocytes Auto (Bld) [#/Vo l]on 10-01-2024 Lymphocytes (Bld) [#/Vol] Lymphocytes [#/volume] in Blood by Automated count 1.2-3.8 [facility] Lymphocytes/100 WBC Auto (Bl d)on 10-01-2024 Lymphocytes/100 WBC (Bld) Lymphocytes/100 leukocytes in Blood by Automated count Low 20.5-60.0 [facility] MCH Auto (RBC) [Entitic mass ]on 10-01-2024 MCH (RBC) [Entitic mass] MCH [Entitic ma ss] by Automated count 25.9-34.0 [facility] MCHC Auto (RBC) [Mass/Vol]on 10-01-2024 MCHC (RBC) [Mass/Vol] MCHC [Mass/volume] by Automated count High 29.9-35.2 [facility] MCV Auto (RBC) [Entitic vol] on 10-01-2024 MCV (RBC) [Entitic vol] MCV [Entitic volume] by Automated count 80.0-94.0 [facility] Monocytes Auto (Bld) [#/Vol] on 10-01-2024 Monocytes (Bld) [#/Vol] Automated blood monocyte count 0.3-0.8 [facility] Monocytes/100 WBC Auto (Bld) on 10-01-2024 Monocytes/100 WBC (Bld) Automated monocy te % 1.7-12.0 [facility] Neutrophils Auto (Bld) [#/Vo l]on 10-01-2024 Neutrophils (Bld) [#/Vol] Neutrophils [#/volume] in Blood by Automated count 1.4-6.5 [facility] Neutrophils/100 WBC Auto (Bl d)on 10-01-2024 Neutrophils/100 WBC (Bld) Automated neutrophil % 43.0-75.0 [facility] No Panel Informationon 10-01 Eosinophils # (Auto) 0.1 10 3/uL 0.0-0.7 [facility] Immature Granulocyte # (Auto) 0.01 10 3/uL 0.00-0.03 [facility] Troponin I High Sensitivity 5.5 pg/mL 4.0-76.1 [facility] Comment on above: CUT-OFF POINTS HAVE BEEN ESTABLISHED BASED ON THE FOURTHIVERSAL DEFINITION OF MYOCARDIAL INFARCTION. THE UPPERREFERENCE LIMIT [...] in Blood by Automated count Low 9.5-13.5 [facility] Platelets Auto (Bld) [#/Vol] on 10-01-2024 Platelets (Bld) [#/Vol] Platelets [#/volume] in Blood by Automated count Low 150-450 [facility] RBC Auto (Bld) [#/Vol]on RBC (Bld) [#/Vol] Erythrocytes [#/volume] in Blood by Automated count 4.70-6.10 [facility] Serum or plasma anion gap de terminationon 10-01-2024 Anion gap [Moles/Vol] Serum or plasma anion gap determination [facility] Glucose mean value [Mass/vol ume] in Blood Estimated from glycated hemoglobinon 07-31-2024 Average glucose Estimated from glycated hemoglobin (Bld) [Mass/Vol] Glucose mean value [Mass/volume] in Blood Estimated from glycated hemoglobin [facility] Laboratory - Hematology and Cell countson 07-31-2024 HbA1c (Bld) [Mass fraction] 6.6 % High 4.5-6.2 [facility] Comment on above: ADA RECOMMENDED LIMI T 4.0 - 6.0ADA THERAPEUTIC TARGET < 7.0ACTION SUGGESTED> 7.0 Capillary blood glucose joaquín urement by glucometer (mass/volume)Ordered By: Wyatt Mansfield on 05-06-2024 Glucose [Mass/Vol] 137 mg/dL Normal [facility] Comment on above: Random Glucose Refer ence Range is dependent on time and content of last meal. Glucose of more than 200 mg/dL in a nonstressed, ambulatory subject supports the diagnosis of Diabetes Mellitus. Result Comment: [facility] Glucose Reference Range is dependent on time and content of last meal. Glucose of more than 200 mg/dL in a nonstressed, ambulatory subject supports the diagnosis of Diabetes Mellitus. Performed By: #### G LULS #### Point of Care testing , Glucose Poct Glucometerson 0 05-06-2024 Commemt1 Glu2: Cleaned Meter Normal [facility] Comment on above: Result Comment: PERF ORMED BY: [address] [place] [address] PATHOLOGIST [employer] ARCHITECT STUART RODRIGUEZ M.D. Performed By: #### G LULS #### Point of Care testing , Commemt1 Glu2: Cleaned Meter Normal [facility] Comment on above: Result Comment: PERF ORMED BY: [facility] [address] [address] PATHOLOGIST [employer] ARCHITECT STUART RODRIGUEZ M.D. Performed By: #### G LULS #### Point of Care testing , Glucose [Mass/Vol] 147 mg/dL Normal [facility] Comment on above: Result Comment: [facility] Glucose Reference Range is dependent on time and content of last meal. Glucose of more than 200 mg/dL in a nonstressed, ambulatory subject supports the diagnosis of Diabetes Mellitus. Performed By: #### G LULS #### Point of Care testing , No Panel InformationOrdered By: Wyatt Mansfield on 05-06-2024 Bedside Glucose Comment Glu2: cleaned meter [facility] XR lumbar spine 1Von 024 XR lumbar spine 1V [facility] [address] [place] [address] XRay Report Signed Patient: Fernando Vick MR#: [id number] : 1960 Acct:[id number] Age/Sex: 64 / M ADM Date: 05/06/24 Loc: [place] Room: [facility] Attending Dr: Wyatt Mansfield MD Copies [...] Camacho Em M.D.05/06/2024 4:22 PM Dictation Location: [place] [address] Transcribed By: [facility] 05/06/24 162 Dictated By: Camacho Em DO 05/06/24 1620 Signed By: 05/06/24 1622 Normal [facility] Automated basophil %Ordered By: Wyatt Mansfield on 04-22-2024 Basophils/100 WBC (Bld) 0.4 % Normal . [facility] Comment on above: Performed By: #### C BC #### [address] Automated basophil countOrde red By: Wyatt Mansfield on 04-22-2024 Basophils (Bld) [#/Vol] 0.0 10*3/uL Normal 0.0-0.2 [facility] Comment on above: Result Comment: PERF ORMED BY: [place] [address] PATHOLOGIST [employer] ARCHITECT STUART RODRIGUEZ M.D. Performed By: #### C BC #### [address] Automated blood monocyte cou ntOrdered By: Wyatt Mansfield on 04-22-2024 Monocytes (Bld) [#/Vol] 0.5 10*3/uL Normal 0.0-0.8 [facility] Comment on above: Performed By: #### C BC #### [address] Automated eosinophil %Ordere d By: yWatt Mansfield on 04-22-2024 Eosinophils/100 WBC (Bld) 3.6 % Normal . [facility] Comment on above: Performed By: #### C BC #### [address] Automated eosinophil countOr dered By: Wyatt Mansfield on 04-22-2024 Eosinophils (Bld) [#/Vol] 0.2 10*3/uL Normal 0.0-0.45 [facility] Comment on above: Performed By: #### C BC #### [address] Automated monocyte %Ordered By: Wyatt Mansfield on 04-22-2024 Monocytes/100 WBC (Bld) 9.5 % Normal . [facility] Comment on above: Performed By: #### C BC #### [address] Automated neutrophil %Ordere d By: Wyatt Mansfield on 04-22-2024 Neutrophils/100 WBC (Bld) 60.3 % Normal . [facility] Comment on above: Performed By: #### C BC #### [address] Basic Metabolic Panelon 03-29 GFR/1.73 sq M.predicted MDRD (S/P/Bld) [Vol rate/Area] mL/min/{1.73_m2} Normal [facility] Comment on above: Performed By: #### B MP #### [facility] [address] [place] [address] [place] Calcium [Mass/volume] in Ser um or PlasmaOrdered By: Wyatt Mansfield on 04-22-2024 Calcium [Mass/Vol] 9.6 mg/dL Normal 8.6-10.3 [facility] Comment on above: Result Comment: PERF ORMED BY: [place] [address] PATHOLOGIST [employer] ARCHITECT STUART RODRIGUEZ M.D. Performed By: #### B MP #### [address] Carbon dioxide, total [Moles /volume] in Serum or PlasmaOrdered By: Wyatt Mansfield on 04-22-2024 CO2 [Moles/Vol] 29.0 mmol/L Normal 21.0-31.0 [facility] Comment on above: Performed By: #### B MP #### [place] [address] [place] Chloride [Moles/volume] in S vinny or PlasmaOrdered By: Wyatt Mansfield on 04-22-2024 Chloride [Moles/Vol] 103 mmol/L Normal 98-107 [facility] Comment on above: Performed By: #### B MP #### [address] Complete Blood Count Auto Di ffon 04-22-2024 Mean Corpuscular HGB Conc 35.1 g/dL Normal 32.5-35.6 [facility] Comment on above: Performed By: #### C BC #### [address] NRBC% 0.2 /100{WBC} Normal 0-0.5 [facility] Comment on above: Performed By: #### C BC #### [place] [address] [place] Creatinine [Mass/volume] in Serum or PlasmaOrdered By: Wyatt Mansfield on 04-22-2024 Creatinine [Mass/Vol] 0.99 mg/dL Normal 0.70-1.30 [facility] Comment on above: Performed By: #### B MP #### [facility] [address] [place] [address] ECG 12 lead ECGon 04-22-2024 ECG 12 lead ECG [facility] [address] [place] [place] [address] Electrocardiograph Report Signed Patient: Fernando Vick MR#: [id number] : 1960 Acct:[id number] Age/Sex: 64 / M ADM Date: 04/22/24 Loc: Room: Type: [facility] Attending Dr: Wyatt Mansfield MD Ordering Provider: [...] previous ECGs available Confirmed by Issa Ozuna ([id number]) on 04/23/2024 10:30:06 PM Referred By: Electronically Signed By: Issa Ozuna Transcribed By: MUS Signed By Issa Ozuna MD 04/23/242229 Normal [facility] Erythrocyte distribution wid th [Ratio] by Automated countOrdered By: Wyatt Mansfield on 04-22-2024 Erythrocyte distribution width (RBC) [Ratio] 13.1 % Normal 12.0-14.8 [facility] Comment on above: Performed By: #### C BC #### [facility] [address] [place] [address] [place] Erythrocytes [#/volume] in B lood by Automated countOrdered By: Wyatt Mansfield on 04-22-2024 RBC (Bld) [#/Vol] 4.72 10*6/uL Normal 3.90-5.60 [facility] Comment on above: Performed By: #### C BC #### [place] [address] [place] Glucose [Mass/volume] in Ser um or PlasmaOrdered By: Wyatt Mansfield on 04-22-2024 Glucose [Mass/Vol] 185 mg/dL High 70-100 [facility] Comment on above: ADA recommended refe rence rangeRandom Glucose Reference Range is dependent on time and content of last meal. Glucose of more than 200 mg/dL in a nonstressed, ambulatory subject supports the diagnosis of Diabetes Mellitus. Result Comment: [facility] Glucose Reference Range is dependent on time and content of last meal. Glucose of more than 200 mg/dL in a nonstressed, ambulatory subject supports the diagnosis of Diabetes Mellitus. ADA recommended reference range Performed By: #### B MP #### [address] Hematocrit [Volume Fraction] of Blood by Automated countOrdered By: Wyatt Mansfield on 04-22-2024 Hematocrit (Bld) [Volume fraction] 40.4 % Normal 38.8-50.0 [facility] Comment on above: Performed By: #### C BC #### [address] Hemoglobin [Mass/volume] in BloodOrdered By: Wyatt Mansfield on 04-22-2024 Hemoglobin (Bld) [Mass/Vol] 14.2 g/dL Normal 13.0-17.0 [facility] Comment on above: Performed By: #### C BC #### [address] Leukocytes [#/volume] correc bobby for nucleated erythrocytes in Blood by Automated counOrdered By: Wyatt Mansfield on 04-22-2024 WBC corrected for nucl RBC Auto (Bld) [#/Vol] 5.5 10*3/uL 4.1-10.5 [facility] Leukocytes [#/volume] in Blo od by Automated countOrdered By: Wyatt Mansfield on 04-22-2024 WBC (Bld) [#/Vol] 5.5 10*3/uL Normal 4.1-10.5 [facility] Comment on above: Performed By: #### C BC #### [place] [id number] [place] Lymphocytes [#/volume] in Bl ood by Automated countOrdered By: Wyatt Mansfield on 04-22-2024 Lymphocytes (Bld) [#/Vol] 1.4 10*3/uL Normal 1.00-4.8 [facility] Comment on above: Performed By: #### C BC #### [address] Lymphocytes/100 leukocytes i n Blood by Automated countOrdered By: Wyatt Mansfield on 04-22-2024 Lymphocytes/100 WBC (Bld) 26.2 % Normal . [facility] Comment on above: Performed By: #### C BC #### [address] MCH [Entitic mass] by Automa bobby countOrdered By: Wyatt Mansfield on 04-22-2024 MCH (RBC) [Entitic mass] 30.0 pg Normal 27.5-35.2 [facility] Comment on above: Performed By: #### C BC #### [address] MCHC Auto (RBC) [Mass/Vol]Or dered By: Wyatt Mansfield on 04-22-2024 MCHC (RBC) [Mass/Vol] 35.1 g/dL 32.5-35.6 [facility] MCV [Entitic volume] by Auto mated countOrdered By: Wyatt Mansfield on 04-22-2024 MCV (RBC) [Entitic vol] 85.5 fL Normal 83.5-101 [facility] Comment on above: Performed By: #### C BC #### [address] Neutrophils [#/volume] in Bl ood by Automated countOrdered By: Wyatt Mansfield on 04-22-2024 Neutrophils (Bld) [#/Vol] 3.3 10*3/uL Normal 1.8-7.7 [facility] Comment on above: Performed By: #### C BC #### [address] No Panel InformationOrdered By: yWatt Mansfield on 04-22-2024 Estimated GFR (CKD-EPI) > 60.0 mL/Min [facility] Creatinine Clearance (Chem N/A [facility] Nucleated erythrocytes [Pres ence] in Blood by Automated countOrdered By: Wyatt Mansfield on 04-22-2024 Nucleated RBC Auto Ql (Bld) 0.2 /100{WBC} 0-0.5 [facility] Platelet mean volume [Entiti c volume] in Blood by Automated countOrdered By: Wyatt Mansfield on 04-22-2024 Platelet mean volume (Bld) [Entitic vol] 7.7 fL Normal 6.6-10.1 [facility] Comment on above: Performed By: #### C BC #### [address] Platelets [#/volume] in Bloo d by Automated countOrdered By: Wyatt Mansfield on 04-22-2024 Platelets (Bld) [#/Vol] 159 10*3/uL Normal 150-450 [facility] Comment on above: Performed By: #### C BC #### [address] Potassium [Moles/volume] in Serum or PlasmaOrdered By: Wyatt Mansfield on 04-22-2024 Potassium [Moles/Vol] 4.0 mmol/L Normal 3.5-5.1 [facility] Comment on above: Performed By: #### B MP #### [facility] [address] [place] [address] Serum or plasma anion gap de terminationOrdered By: Wyatt Mansfield on 04-22-2024 Anion gap [Moles/Vol] 11.0 mmol/L Normal 6.0-15.0 [facility] Comment on above: Performed By: #### B MP #### [place] [address] [place] Sodium [Moles/volume] in Ser um or PlasmaOrdered By: Wyatt Mansfield on 04-22-2024 Sodium [Moles/Vol] 139 mmol/L Normal 136-145 [facility] Comment on above: Performed By: #### B MP #### [facility] [address] [place] [address] [place] Urea nitrogen [Mass/volume] in Serum or PlasmaOrdered By: Wyatt Mansfield on 04-22-2024 Urea nitrogen [Mass/Vol] 22 mg/dL Normal 03-21 [facility] Comment on above: Performed By: #### B MP #### [facility] [address] [place] [address] [facility] Estimated glomerular filtrat ion rate (GFR) non- Americanon 03-20-2024 GFR/1.73 sq M.predicted among non-blacks MDRD (S/P/Bld) [Vol rate/Area] mL/min/{1.73_m2} >=60 [facility] Laboratory - Chemistry and C hemistry - challengeon 03-20-2024 Creatinine [Mass/Vol] 0.92 mg/dL 0.70-1.30 [facility] GFR/1.73 sq M.predicted MDRD (S/P/Bld) [Vol rate/Area] mL/min/{1.73_m2} >=60 [facility] Glucose Glucometer (BldC) [M ass/Vol]Ordered By: Misha Jacobs on 08-01-2023 Glucose [Mass/Vol] 141 mg/dL [facility] Comment on above: Random Glucose Refer ence Range is dependent on time and content of last meal. Glucose of more than 200 mg/dL in a nonstressed, ambulatory subject supports the diagnosis of Diabetes Mellitus. No Panel InformationOrdered By: Misha Jacobs on 08-01-2023 Bedside Glucose Comment Glu2: cleaned meter [facility] GLYCOHEMOGLOBIN A1Con 2022 ADA RECOMMENDATION SEE BELOW Normal [facility] Comment on above: Result Comment: ADA RECOMMENDED LIMIT 4.0 - 6.0 ADA THERAPEUTIC TARGET < 7.0 ACTION SUGGESTED > 7.0 Performed By: #### D ATA1C #### [facility] [address] [address] [address] Maren Hernandez Glucose [Mass/Vol] 140 mg/dL Normal [facility] Comment on above: Performed By: #### D ATA1C #### [facility] [address] [place] [address] Dr. Maren Hernandez HbA1c (Bld) [Mass fraction] 6.5 % Critically high 4.5-6.2 [facility] Comment on above: Performed By: #### D ATA1C #### [facility] [address] [place] [address] Dr. Maren Hernandez CBC AUTO DIFFon 04-14-2022 BASO # 0.0 103/ul Normal 0.0-0.1 [facility] Comment on above: Performed By: #### D ATCBC #### [facility] [address] [place] [address] Dr. Maren Hernandez Basophils/100 WBC (Bld) 0.5 % Normal 0.2-2.0 [facility] Comment on above: Performed By: #### D ATCBC #### [facility] [address] [place] [address] Dr. Maren Hernandez EO # 0.2 103/ul Normal 0.0-0.7 [facility] Comment on above: Performed By: #### D ATCBC #### [facility] [address] [place] [address] Dr. Maren Hernandez Eosinophils/100 WBC (Bld) 3.6 % Normal 0.9-7.0 [facility] Comment on above: Performed By: #### D ATCBC #### [facility] [address] [place] [address] Dr. Maren Hernandez Erythrocyte distribution width (RBC) [Ratio] 12.5 % Normal 11.0-15.0 [facility] Comment on above: Performed By: #### D ATCBC #### [facility] [address] [place] [address] Dr. Maren Hernandez Hematocrit (Bld) [Volume fraction] 43.3 % Normal 42.0-54.0 [facility] Comment on above: Performed By: #### D ATCBC #### [facility] [address] [place] [address] Dr. Marne Hernandez Hemoglobin (Bld) [Mass/Vol] 14.9 g/dL Normal 14.0-18.0 [facility] Comment on above: Performed By: #### D ATCBC #### [facility] [address] [address] [address] Maren Hernandez IG # 0.02 10e3/ul Normal 0.00-0.03 [facility] Comment on above: Performed By: #### D ATCBC #### [facility] [address] [address] [address] Maren Hernandez IG % 0.4 % Normal 0.0-0.5 [facility] Comment on above: Performed By: #### D ATCBC #### [facility] [address] [address] [address] Maren Hernandez LYMPH # 1.3 103/ul Normal 1.2-3.8 [facility] Comment on above: Performed By: #### D ATCBC #### [facility] [address] [address] [address] Maren Hernandez Lymphocytes/100 WBC (Bld) 23.6 % Normal 20.5-60.0 [facility] Comment on above: Performed By: #### D ATCBC #### [facility] [address] [address] [address] Maren Hernandez MCH (RBC) [Entitic mass] 30.0 pg Normal 25.9-34.0 [facility] Comment on above: Performed By: #### D ATCBC #### [facility] [address] [address] [address] Maren Hernandez MCHC (RBC) [Mass/Vol] 34.4 g/dL Normal 29.9-35.2 [facility] Comment on above: Performed By: #### D ATCBC #### [facility] [address] [address] [address] Maren Hernandez MCV (RBC) [Entitic vol] 87.3 fL Normal 80.0-94.0 [facility] Comment on above: Performed By: #### D ATCBC #### [facility] [address] [address] [address] Maren Hernandez MONO # 0.6 103/ul Normal 0.3-0.8 [facility] Comment on above: Performed By: #### D ATCBC #### [facility] [address] [address] [address] Maren Hernandez Monocytes/100 WBC (Bld) 10.0 % Normal 1.7-12.0 [facility] Comment on above: Performed By: #### D ATCBC #### [facility] [address] [address] [address] Maren Hernandez NEUT # 3.4 103/ul Normal 1.4-6.5 [facility] Comment on above: Performed By: #### D ATCBC #### [facility] [address] [place] [address] Dr. Maren Hernandez Neutrophils/100 WBC (Bld) 61.9 % Normal 43.0-75.0 [facility] Comment on above: Performed By: #### D ATCBC #### [facility] [address] [place] [address] Dr. Maren Hernandez Platelet mean volume (Bld) [Entitic vol] 9.2 fL Critically low 9.5-13.5 [facility] Comment on above: Performed By: #### D ATCBC #### [facility] [address] [place] [address] Dr. Maren Hernandez PLT 152 103/ul Normal 150-450 [facility] Comment on above: Performed By: #### D ATCBC #### [facility] [address] [place] [address] Dr. Maren Hernandez RBC 4.96 106/ul Normal 4.70-6.10 [facility] Comment on above: Performed By: #### D ATCBC #### [facility] [address] [address] [address] Maren Hernandez WBC 5.5 103/ul Normal 4.0-11.0 [facility] Comment on above: Performed By: #### D ATCBC #### [facility] [address] [place] [address] Dr. Maren Hernandez LOIS- BMP WITH LIPIDon 2021 Anion gap [Moles/Vol] 10.2 mmol/L Normal Th [facility] Comment on above: Performed By: #### D ATPSA, DATBMP #### [facility] [address] [address] [address] Maren Hernandez Calcium [Mass/Vol] 9.0 mg/dL Normal 8.5-10.1 [facility] Comment on above: Performed By: #### D ATPSA, DATBMP #### [facility] [address] [address] [address] Maren Hernandez Chloride [Moles/Vol] 101 mmol/L Normal 98-107 [facility] Comment on above: Performed By: #### D ATPSA, DATBMP #### [facility] [address] [place] [address] Dr. Maren Hernandez Cholesterol [Mass/Vol] 179 mg/dL Normal <=200 [facility] Comment on above: Performed By: #### D ATPSA, DATBMP #### [facility] [address] [address] [address] Maren Hernandez Cholesterol in HDL [Mass/Vol] 37 mg/dL Critically low 40-60 [facility] Comment on above: Performed By: #### D ATPSA, DATBMP #### [facility] [address] [place] [address] Dr. Maren Hernandez Cholesterol in LDL [Mass/Vol] 107.2 mg/dL Normal [facility] Comment on above: Performed By: #### D ATPSA, DATBMP #### [facility] [address] [address] [address] Maren Hernandez CO2 [Moles/Vol] 30.8 mmol/L Normal 21.0-32.0 [facility] Comment on above: Performed By: #### D ATPSA, DATBMP #### [facility] [address] [place] [address] Dr. Maren Hernandez Creatinine [Mass/Vol] 0.85 mg/dL Normal 0.70-1.30 [facility] Comment on above: Performed By: #### D ATPSA, DATBMP #### [facility] [address] [address] [address] Maren Hernandez EGFR-AF CITIZEN OF [place] >60 Normal >=60 [facility] Comment on above: Performed By: #### D ATPSA, DATBMP #### [facility] [address] [address] [address] Maren Hernandez EGFR-NON AF CITIZEN OF [place] >60 Normal >=60 [facility] Comment on above: Performed By: #### D ATPSA, DATBMP #### [facility] [address] [address] [address] Maren Hernandez Glucose [Mass/Vol] 137 mg/dL Normal [facility] Comment on above: Performed By: #### D ATPSA, DATBMP #### [facility] [address] [address] [address] Maren Hernandez Performed By: #### D ATA1C #### [facility] [address] [place] [address] Dr. Maren Hernandez HDL NORMAL > or = 60 mg/dl - LOW CARDIOVASCULAR RISK <40 mg/dl - HIGH CARDIOVASCULAR RISK Normal [facility] Comment on above: Performed By: #### D ATPSA, DATBMP #### [facility] [address] [address] [address] Maren Hernandez LDL CALC NORMAL SEE BELOW Normal [facility] Comment on above: Result Comment: <100 mg/dl OPTIMAL 100 - 129 mg/dl NEAR OR ABOVE OPTIMAL 130 - 159 mg/dl BORDERLINE HIGH 160 - 189 mg/dl HIGH >190 mg/dl VERY HIGH Performed By: #### D ATPSA, DATBMP #### [facility] [address] [address] [address] Maren Hernandez Potassium [Moles/Vol] 4.0 mmol/L Normal 3.5-5.1 [facility] Comment on above: Performed By: #### D ATPSA, DATBMP #### [facility] [address] [address] [address] Maren Hernandez Sodium [Moles/Vol] 138 mmol/L Normal 136-145 [facility] Comment on above: Performed By: #### D ATPSA, DATBMP #### [facility] [address] [address] [address] Maren Hernandez Triglyceride [Mass/Vol] 174 mg/dL Critically high <=150 [facility] Comment on above: Performed By: #### D ATPSA, DATBMP #### [facility] [address] [address] [address] Maren Hernandez Urea nitrogen [Mass/Vol] 17.0 mg/dL Normal 7.0-18.0 [facility] Comment on above: Performed By: #### D ATPSA, DATBMP #### [facility] [address] [address] [address] Maren Hernandez Urea nitrogen/Creatinine [Mass ratio] 20.0 mg/mg Normal [facility] Comment on above: Performed By: #### D ATPSA, DATBMP #### [facility] [address] [place] [address] Dr. Maren Hernandez VLDL CALC 34.8 mg/dL Normal [facility] Comment on above: Performed By: #### D ATPSA, DATBMP #### [facility] [address] [address] [address] Maren Hernandez GLYCOHEMOGLOBIN A1Con 2021 ADA RECOMMENDATION SEE BELOW Normal [facility] Comment on above: Result Comment: ADA RECOMMENDED LIMIT 4.0 - 6.0 ADA THERAPEUTIC TARGET < 7.0 ACTION SUGGESTED > 7.0 Performed By: #### D ATA1C #### [facility] [address] [address] [address] Maren Hernandez HbA1c (Bld) [Mass fraction] 6.4 % Critically high 4.5-6.2 [facility] Comment on above: Performed By: #### D ATA1C #### [facility] [address] [place] [address] Dr. Maren Hernandez Vital Signs Date Time Vital Sign Value Performing Clinician Facility 04-18-2025 08:24-0400 Body height 180.34 cm Milady Mansfield MD Work Phone: [facility] 04-18-2025 08:24-0400 Body mass index (BMI) [Ratio] 27.6 kg/m2 Milady Mansfield MD Work Phone: [facility] 04-18-2025 08:24-0400 Body weight 89.81 kg Milady Mansfield MD Work Phone: [facility] 04-18-2025 08:24-0400 Diastolic blood pressure 75 mm[Hg] Milady Mansfield MD Work Phone: [facility] 04-18-2025 08:24-0400 Heart rate 63 /min Milady Mansfield MD Work Phone: [facility] 04-18-2025 08:24-0400 Systolic blood pressure 132 mm[Hg] Milady Mansfield MD Work Phone: [facility] 10-17-2024 11:22-0500 Body height 180.34 cm Milady Mansfield MD Work Phone: [facility] 10-17-2024 11:22-0500 Body mass index (BMI) [Ratio] 27.1 kg/m2 Milady Mansfield MD Work Phone: [facility] 10-17-2024 11:22-0500 Body weight 88.45 kg Milady Mansfield MD Work Phone: [facility] 10-17-2024 11:22-0500 Diastolic blood pressure 76 mm[Hg] Milady Mansfield MD Work Phone: [facility] 10-17-2024 11:22-0500 Heart rate 71 /min Milady Mansfield MD Work Phone: [facility] 10-17-2024 11:22-0500 Systolic blood pressure 165 mm[Hg] Milady Mansfield MD Work Phone: [facility] 10-01-2024 09:04-0500 Body height 180.34 cm Milady Mansfield MD Work Phone: [facility] 10-01-2024 09:04-0500 Body mass index (BMI) [Ratio] 27.6 kg/m2 Milady Mansfield MD Work Phone: [facility] 10-01-2024 09:04-0500 Body weight 89.81 kg Mliady Mansfield MD Work Phone: [facility] 10-01-2024 09:04-0500 Diastolic blood pressure 72 mm[Hg] Milady Mansfield MD Work Phone: [facility] 10-01-2024 09:04-0500 Heart rate 57 /min Milady Mansfield MD Work Phone: [facility] 10-01-2024 09:04-0500 Systolic blood pressure 156 mm[Hg] Milady Mansfield MD Work Phone: [facility] 07-11-2024 11:16-0500 Body height 180.34 cm Milady Mansfield MD Work Phone: [facility] 05-06-2024 12:27-0400 Diastolic blood pressure 78 mm[Hg] MD Milady Mansfield Work Phone: [facility] 05-06-2024 12:27-0400 Heart rate 69 /min MD Milady Mnasfield Work Phone: [facility] 05-06-2024 12:27-0400 Respiratory rate 16 /min MD Milady Mansfield Work Phone: [facility] 05-06-2024 12:27-0400 SaO2% (BldA) [Mass fraction] 94 % MD Milady Mansfield Work Phone: [facility] 05-06-2024 12:27-0400 Systolic blood pressure 131 mm[Hg] MD Milady Mansfield Work Phone: [facility] 05-06-2024 10:40-0400 Body temperature 97.1 [degF] MD Milady Mansfield Work Phone: [facility] 05-06-2024 10:40-0400 Inhaled oxygen flow rate 8 L/min MD Milady Mansfield Work Phone: [facility] 05-06-2024 07:25-0400 Body height 180.34 cm MD Milady Mansfield Work Phone: [facility] 05-06-2024 07:25-0400 Body weight 91 kg MD Milady Mansfield Work Phone: [facility] 04-17-2024 08:33-0400 Body height 180.34 cm MD Milady Mansfield Work Phone: [facility] 04-17-2024 08:33-0400 Body mass index (BMI) [Ratio] 27.4 kg/m2 MD Milady Mansfield Work Phone: [facility] 04-17-2024 08:33-0400 Body weight 89.35 kg MD Milady Mansfield Work Phone: [facility] 04-17-2024 08:33-0400 Diastolic blood pressure 82 mm[Hg] MD Milady Mansfield Work Phone: [facility] 04-17-2024 08:33-0400 Heart rate 55 /min MD Milady Mansfield Work Phone: [facility] 04-17-2024 08:33-0400 Systolic blood pressure 148 mm[Hg] MD Milady Mansfield Work Phone: [facility] 04-16-2024 15:16-0400 Body height 180.34 cm MD Milady Mansfield Work Phone: [facility] 04-16-2024 15:16-0400 Body mass index (BMI) [Ratio] 27.5 kg/m2 MD Milady Mansfield Work Phone: [facility] 04-16-2024 15:16-0400 Body weight 89.41 kg MD Milady Mansfield Work Phone: [facility] 03-14-2024 11:26-0400 Body height 180.34 cm MD Milady Mansfield Work Phone: [facility] 03-14-2024 11:26-0400 Body mass index (BMI) [Ratio] 27.4 kg/m2 MD Milady Mansfield Work Phone: [facility] 03-14-2024 11:26-0400 Body weight 89.35 kg MD Milady Mansfield Work Phone: [facility] 03-14-2024 11:26-0400 Diastolic blood pressure 80 mm[Hg] MD Milady Mansfield Work Phone: [facility] 03-14-2024 11:26-0400 Heart rate 54 /min MD Milady Mansfield Work Phone: [facility] 03-14-2024 11:26-0400 Systolic blood pressure 157 mm[Hg] MD Milady Mansfield Work Phone: [facility] 08-01-2023 09:15-0500 Diastolic blood pressure 72 mm[Hg] MD Milady Mansfield Work Phone: [facility] 08-01-2023 09:15-0500 Heart rate 68 /min MD Milady Mansfield Work Phone: [facility] 08-01-2023 09:15-0500 Respiratory rate 16 /min MD Milady Mansfield Work Phone: [facility] 08-01-2023 09:15-0500 SaO2% (BldA) [Mass fraction] 97 % MD Milady Mansfield Work Phone: [facility] 08-01-2023 09:15-0500 Systolic blood pressure 118 mm[Hg] MD Milady Mansfield Work Phone: [facility] 08-01-2023 06:53-0500 Body height 180.34 cm MD Milady Mansfield Work Phone: [facility] 08-01-2023 06:53-0500 Body weight 90.71 kg MD Milady Mansfield Work Phone: [facility] 04-25-2023 08:30-0400 Body height 177.8 cm Milady Mansfield Other [facility] [employer] Other 04-25-2023 08:30-0400 Body mass index (BMI) [Ratio] 29.41 kg/m2 Milady Mansfield Other [facility] [employer] Other 04-25-2023 08:30-0400 Body weight 92.99 kg Milady Mansfield Other [employer] Other 04-25-2023 08:30-0400 Diastolic blood pressure 78 mm[Hg] Milady Mansfield Other [employer] Other 04-25-2023 08:30-0400 Systolic blood pressure 151 mm[Hg] Milady Mansfield Other [facility] [employer] Other Encounters Encounter Date Encounter Type Care Provider Facility Start: 04-18-2025 End: 04-18-2025 ambulatory Milady Mansfield MD Work Phone: [facility] Work Phone: Start: 04-18-2025 End: 04-18-2025 Patient encounter procedure Milady Mansfield MD -[facility] Work Phone: Start: 10-17-2024 End: 10-17-2024 ambulatory Milady Mansfield MD Work Phone: [facility] Work Phone: Start: 10-17-2024 End: 10-17-2024 Patient encounter procedure Milady Mansfield MD Work Phone: [facility] Work Phone: Start: 10-01-2024 End: 10-01-2024 ambulatory Milady Mansfield MD Work Phone: [facility] Work Phone: Start: 10-01-2024 End: 10-01-2024 Patient encounter procedure Milady Mansfield MD Work Phone: [facility] Work Phone: Start: 07-31-2024 Non-patient / Non-visit Milady Mansfield MD Work Phone: [facility] Work Phone: Start: 07-11-2024 End: 07-11-2024 Patient encounter procedure Milady Mansfield MD Work Phone: [facility] Work Phone: Start: 05-06-2024 Non-patient / Non-visit MD Ct Mansfield Work Phone: [facility] Work Phone: Start: 05-06-2024 End: 05-06-2024 Admission to same day surgery center MD Milady Mansfield Work Phone: [facility] [place] Start: 05-06-2024 End: 05-06-2024 ambulatory MD Milady Mansfield Work Phone: [facility] Work Phone: Start: 04-22-2024 End: 04-22-2024 Patient encounter procedure MD Milady Mansfield Work Phone: [facility] Work Phone: Start: 04-22-2024 End: 04-22-2024 ambulatory MD Milady Mansfield Work Phone: [facility] Work Phone: Start: 04-22-2024 Encounter for preprocedural laboratory examination Wyatt Mansfield [facility] Start: 04-17-2024 Patient encounter status MD Milady Mansfield Work Phone: [facility] Start: 04-17-2024 End: 04-17-2024 Encounter for general adult medical examination without abnormal findings MD Milady Mansfield Work Phone: [facility] Start: 04-17-2024 End: 04-17-2024 Patient encounter procedure MD Milady Mansfield Work Phone: [facility] Work Phone: Start: 04-16-2024 End: 04-16-2024 Patient encounter procedure MD Milady Mansfield Work Phone: [facility] Work Phone: Start: 03-20-2024 Non-patient / Non-visit MD Ct Mansfield Work Phone: [facility] Work Phone: Start: 03-14-2024 End: 03-14-2024 Patient encounter procedure MD Milayd Mansfield Work Phone: [facility] Work Phone: Start: 08-03-2023 End: 08-03-2023 ambulatory Maria Luisa Gudino Other [facility] [employer] Other Start: 08-03-2023 Office outpatient vi sit 10 minutes Maria Luisa Gudino [facility] Start: 08-01-2023 End: 08-01-2023 Admission to same day surgery center MD Milady Mansfield Work Phone: [facility] Work Phone: Start: 08-01-2023 End: 08-01-2023 ambulatory MD Milady Mansfield Work Phone: [facility] Work Phone: Start: 07-06-2023 End: 07-06-2023 ambulatory Milady Mansfield Other [employer] Other Start: 07-06-2023 Telephone encounter Milady Mansfield [facility] Start: 05-30-2023 End: 05-30-2023 ambulatory Misha Jacobs Other [employer] Other Start: 05-30-2023 Telephone encounter Misha Callahan [facility] Start: 05-05-2023 End: 05-05-2023 ambulatory Milady Mansfield Other [employer] Other Start: 05-05-2023 Telephone encounter Milady Mansfield [facility] Start: 04-27-2023 End: 04-27-2023 ambulatory Milady Mansfield Other [employer] Other Start: 04-27-2023 Telephone encounter Milady Donal [facility] Start: 04-25-2023 End: 04-25-2023 ambulatory Milady Mansfield Other [employer] Other Start: 04-25-2023 Encounter for rojas l adult medical examination without abnormal findings Milady Mansfield [facility] Start: 04-25-2023 Initial preventive medicine new patient 40-64yrs Milady Mansfield [facility] Start: 04-10-2023 ambulatory [facility] Facility :[facility] Start: 09-27-2022 End: 09-28-2022 ambulatory [...] Performed By: #### D ATPSA, DATBMP #### [facility] [address] [place] [address] Dr. Maren Hernandez Plan of Treatment Date Care Activity Detail Author Start: 10-01-2024 Patient referral [facility] Work Phone: Start: 10-01-2024 EKG 12 channel panel [facility] Start: 05-06-2024 [facility] Start: 05-06-2024 [facility] Start: 05-06-2024 X-ray of lumbar spin e, single view XR lumbar spine 1V [facility] Start: 05-06-2024 XR Lumbar spine Sing le view [facility] Start: 08-01-2023 [facility] Comprehensive metabo lic 2000 panel - Serum or Plasma [facility] Holter monitor study [facility] MR Lumbar spine WO contrast [facility] Patient Education [facility] Work Phone: Patient referral [facility] Work Phone: XR Hip - right 2 Views [facility] XR Lumbar spine 2 or 3 Views [facility] XR Lumbar spine Views [facility] Immunizations Immunization Date Immunization Notes Care Provider Fa cility 05-31-2021 COVID-19 Pfizer Milady Mansfield Other [facility] Payers Date Payer Category Payer Medicare [id number] 2024 Private Health Insurance CLI [id number] 2022 Unknown [id number] 1960 Self-pay 1960 Unknown [id number] [id number] [id number] Unknown [id number] 2.16.84 [id number] Unknown [id number] 2.16.84 [id number] Unknown [id number] 2.16.8 [id number] Unknown [id number] 2.16.8 [id number] Unknown [id number] 2.16.8 [id number] Social History Date Type Detail Facility Unknown if ever smoked [facility] Other Sex Assigned At Sex Assigned At Bir th [facility] Start: 08-01-2023 End: 10-17-2024 Tobacco smoking status NHIS Ex-smoker (finding) [facility] Start: 1960 Sex Assigned At Male [facility] Start: 10-02-2024 Sex Patient sex un known (finding) [facility] Start: 10-17-2024 Sex Male (finding) [facility] Medical Equipment Procedure Code Equipment Code Equipment Origin al Text Equipment Identifier Dates Blood Sugar Diagnostic (Blood Glucose Test) strip Start: 04-18-2025 [facility] misc Start: 04-18-2025 Goals Date Patient Goal Desired Activity /State Clinical Notes 02-25-2023 to 10-01-2024 Note Date & Type Note Facility 10-01-2024 Evaluation note Diagnosis Onset Date Resolution Bradycardia acute October 01, 2024 8:54am Chest pain acute October 01, 2024 8:54am Essential (primary) hypertension acute October 01 8:54am Syncope and collapse acute 2024 8:54am Essential (primary) hypertension acute October 17 11:19am Palpitations acute September 11:19am Syncope and collapse acute 2024 11:19am [facility] Work Phone: 1(328) 961-782311-14-2024 Evaluation note* Diagnosis Onset Date Resolution Status Admit Date Lumbosacral disc herniation acute July 11, 2024 10:58am Bradycardia acute October 01, 2024 8:54am Chest pain acute October 01, 2024 8:54am Essential (primary) hypertension acute October 01 8:54am Syncope and collapse acute 2024 8:54am [facility] Work Phone: 1(364) 445-204212-07-2023 Evaluation note* Encounter Date Diagnosis Assessment Notes [...] spent with patient was approximately 10 minutes. [facility] Other 12-05-2023 Procedure [facility]08-31-2023 Evaluation note* Encounter Date Diagnosis Assessment Notes Treatment Notes Treatment Clinical Notes Mar, Type 2 diabetes mellitus with hyperglycemia, without long-term current use of insulin (ICD-10 - E11.65) [facility] Other 08-29-2023 Evaluation note* Encounter Date Diagnosis [...] patient is sent home pleased, without concerns. [facility] Other 07-01-2023 History general Narrative - Reported* Type Description Date Medical History Gout Medical History Anxiety Medical History Hypertension Surgical History Retina, laser Surgical History Vitrectomy, left eye 02/2023 Surgical History Cataract both eyes [facility] Other Evaluation noteNo InformationNort Blottr Other Evaluation note* Diagnosis Onset Date Resolution Status History of colon polyps acut e [facility] Work Phone: Evaluation note* Diagnosis Onset Date Resolution Status Right sided sciatica acute Lumbosacral disc herniation acute Right lumbar radiculopathy a cute Welcome to Medicare preventive visit acute [facility] Work Phone: Evaluation note* Diagnosis Onset Date Resolution Status Admit Date Essential (primary) hypertension acu te April 18, 2025 8:22am Medicare annual wellness vis it, subsequent acute April 18 8:22am Screening PSA (prostate spec ific antigen) acute April 18 8:22am Type 2 diabetes mellitus wit h hyperglycemia acute April 18 8:22am [facility] Work Phone: Hospital Discharge instructions [...] if you have any problems. -Office number [phone] Work Phone: Hospital Discharge instructions Additional Instructions [...] appointment to see your physician in two weeks.[facility] Work Phone: Reason for referral (narrative)No reason for referral information [facility] Work Phone: Summary Purpose Family History Relationship [...] Advance Directives No June 02, 2021 1:48pm Advance Directive Response Recorded Date/ Time Advance Directives No September 1:04pm Chief Complaint and Reason for Visit Chief [...] October 01, 2024 8:54am Essential (primary) hypertension 2024 11:19am Palpitations October 17, 2024 11:19am Syncope and collapse October 17, 2024 11:19am Chief Complaint Admit Date Wellness April 18, 2025 8: 22am Reason for Visit Admit Date Essential (primary) hypertension April 18, 2025 8:22am Medicare annual wellness visit, subseque nt April 18, 2025 8:22am Screening PSA (prostate specific antigen ) April 18, 2025 8:22am Type 2 diabetes mellitus with hyperglyce simon April 18, 2025 8:22am Additional Source Comments (unrecognized sect ion and content) No Status Records FoundNo Status Records FoundNo Status Records Found INFORMATION SOURCE (unrecogn ized section and content) DATE CREATED AUTHOR 09/27/2022 [facility] DATE CREATED AUTHOR AUTHOR'S ORGANIZ ATION 11/08/2022 [facility] DATE CREATED AUTHOR AUTHOR'S ORGANIZ ATION 10/03/2024 [facility] REASON FOR VISIT (unrecogniz ed section and content) Check Up (Dr. Mancera Patient )labslabsClinical Acute IllnessSINUS INFECTION SORE THROAT NEGATIVE COVIDBlood Sugars Care Teams (unrecognized sec tion and content) Team Status: Active Member Role Status Dates Milady Mansfield MD Primary Care Provider Active Team Status: Inactive Member Role Status Dates Milady Mansfield MD Primary Care Provider Active Start: April 18, 2025 End: April 18, 2025 Milady Mansfield MD Attending Provider Active St art: April 18, 2025 End: April 18, 2025 Team Status: Active Member Role Status Munira [...] 2024 End: October 17, 2024 Team Status: Inactive Member Role [...] 2024 End: July 11, 2024 Team Status: Inactive Member Role Status Dates Milady Mansfield MD Primary Care Provider Active Start: April 18, 2025 End: April 18, 2025 Milady Mansfield MD Attending Provider Active St art: April 18, 2025 End: April 18, 2025 Goals (unrecognized section and content) Goals may [...] BE BASED ON THE PRIMARY CLINICAL RECORDS. [facility] [employer] provides no warranty or guarantee of the accuracy or completeness of information in this document.
[2025-04-19 08:15] LABS: Hematocrit 40.0 % (42.0-54.0); Hemoglobin 13.9 g/dL (14.0-18.0); Immature Granulocytes Abs Auto 0.01 10^3/uL (0.00-0.03); Immature Granulocytes Pct Auto 0.2 % (0.0-0.5); Lymphocytes Absolute Auto 1.1 10^3/uL (1.2-3.8); Mean Corpuscular HGB Conc 34.8 g/dL (29.9-35.2); Mean Corpuscular Hemoglobin 29.6 pg (25.9-34.0); Mean Corpuscular Volume 85.1 fL (80.0-94.0); Platelet Count 130 10^3/uL (150-450); Red Blood Count 4.70 10^6/uL (4.70-6.10); White Blood Count 4.6 10^3/uL (4.0-11.0)
[2025-04-19 08:32] LABS: Alanine Aminotransferase 37 U/L (16-63); Albumin Globulin Ratio 1.2; Albumin Level 4.1 g/dL (3.4-5.0); Alkaline Phosphatase 80 U/L (46-116); Anion Gap 12.2; Aspartate Amino Transferase 20 U/L (15-37); Blood Urea Nitrogen 14.0 mg/dL (7.0-18.0); Calcium 9.3 mg/dL (8.5-10.1); Carbon Dioxide 28.3 mmol/L (21.0-32.0); Chloride 104 mmol/L (98-107); Cholesterol 173 mg/dL (<=200); Estimated GFR (African America >60 (>=60 mL/min/1.73m^2); Estimated GFR (Non-African Ame >60 (>=60 mL/min/1.73m^2); Globulin 3.3 g/dL; Glucose 125 mg/dL (74-106); HDL Cholesterol 42 mg/dL (40-60); Potassium 4.5 mmol/L (3.5-5.1); Sodium 140 mmol/L (136-145); Total Protein 7.4 g/dL (6.4-8.2); Triglycerides 122 mg/dL (<=150); VLDL CHOLESTEROL 24.4 mg/dL
== END 2025-04-19 07:29 | disposition home or self-care (01) ==
PROVIDERS: PCP Family Medicine; Visit Provider Family Medicine
DX: Z00.00 Encounter for general adult medical examination without abnormal findings (principal); E11.65 Type 2 diabetes mellitus with hyperglycemia; I10 Essential (primary) hypertension; Z12.5 Encounter for screening for malignant neoplasm of prostate
CPT/HCPCS: 36415; 80053; 80061; 82043; 82570; 83036; 85025; G0103